=== PATIENT | female | born 1980 | race Caucasian/White ===

== ENCOUNTER 2017-04-10 13:34 | Observation (INO) | payer OTHER ==
[2017-04-10] MEDS ORDERED: SODIUM CHLORIDE 0.9% 1,000 ML IV STA ×2 (13:58)
[2017-04-10] MEDS ORDERED: LORazepam 2 MG/ML INJ IV STA (13:58)
--- NOTE | 2017-04-10 14:12 | ED ---
General Adult HPI - General Chief complaint: Shortness of Breath Stated complaint: SOB Time Seen by Provider: 04/10/17 13:45 Source: patient, RN notes reviewed Mode of arrival: ambulatory Limitations: no limitations - History of Present Illness Initial comments: The patient is a 36-year-old female significant past medical history for hypertension, Marfan syndrome, diabetes, who presents emergency room today with a chief complaint of increasing shortness of breath. She does admit that she was seen and admitted and just discharged 2 days ago from [facility] for this complaint. She states the symptoms seem to be getting worse. She states her symptoms started approximately 6 days ago. She does admit that she was having shortness of breath with chest pain. She states she was admitted to the hospital had CT performed. States that they did not find anything abnormal other than that her aorta is enlarged from previous scan. Patient states that they follow up with her today and advised her that if she was not feeling better that she should return to the emergency room. She states she does live in this area and sent to come to this hospital instead. Patient states she is no longer experiencing chest pain but still having increasing shortness of breath. She states worse with exertion. Patient does admit that she is beginning to have symptoms of some lightheadedness and dizziness over the last few days as well. Patient doesn't palpitations. She denies any other complaints currently. Patient denies any recent fever, back pain, abdominal pain, nausea or vomiting, numbness or tingling, dysuria or hematuria, constipation or diarrhea, headaches or visual changes, or any other complaints. - Related Data Home Medications Medication Instructions Recorded Confirmed ALPRAZolam [Xanax] 0.25 mg PO TID 04/10/17 04/10/17 Canagliflozin [Invokana] 100 mg PO DAILY 04/10/17 04/10/17 Cetirizine HCl [Zyrtec] 10 mg PO HS 04/10/17 04/10/17 Furosemide [Lasix] 40 mg PO DAILY 04/10/17 04/10/17 Gabapentin [Neurontin] 900 mg PO TID 04/10/17 04/10/17 Insulin Glargine [Lantus] 7 unit SQ HS 04/10/17 04/10/17 Metoprolol Tartrate [Lopressor] 50 mg PO HS 04/10/17 04/10/17 Multivitamins, Thera [Multivitamin 1 tab PO DAILY 04/10/17 04/10/17 (formulary)] Omeprazole [PriLOSEC] 80 mg PO HS 04/10/17 04/10/17 Ranitidine HCl 150 mg PO BID 04/10/17 04/10/17 Zolpidem Tartrate [Ambien] 10 mg PO HS 04/10/17 04/10/17 metFORMIN HCL 1,000 mg PO BID 04/10/17 04/10/17 oxyCODONE HCL/ACETAMINOPHEN 1 tab PO Q6HR PRN 04/10/17 04/10/17 [Percocet 10-325 mg] Allergies Allergy/AdvReac Type Severity Reaction Status Date / Time acetaminophen [From Machias] Allergy Unknown Verified 04/10/17 13:58 hydrocodone [From Machias] Allergy Unknown Verified 04/10/17 13:58 pregabalin [From Lyrica] Allergy Unknown Verified 04/10/17 13:58 topiramate [From Topamax] Allergy Unknown Verified 04/10/17 13:58 tramadol [From Ultram] Allergy Unknown Verified 04/10/17 13:58 Review of Systems ROS Statement: Those systems with pertinent positive or pertinent negative responses have been documented in the HPI. ROS Other: All systems not noted in ROS Statement are negative. Past Medical History Past Medical History: No Reported History Additional Past Medical History / Comment(s): marfans syndrome History of Any Multi-Drug Resistant Organisms: None Reported Past Surgical History: Hysterectomy Additional Past Surgical History / Comment(s): spinal cord stimulator Past Psychological History: No Psychological Hx Reported Smoking Status: Never smoker Past Alcohol Use History: None Reported Past Drug Use History: None Reported General Exam - General Exam Comments Initial Comments: General: The patient is awake and alert, in no distress, and does not appear acutely ill. Eye: Pupils are equal, round and reactive to light, extra-ocular movements are intact. No nystagmus. There is normal conjunctiva bilaterally. No signs of icterus. Ears, nose, mouth and throat: There are moist mucous membranes and no oral lesions. Neck: The neck is supple, there is no tenderness or JVD. Cardiovascular: There is a regular rate and rhythm. No murmur, rub or gallop is appreciated. Respiratory: Lungs are clear to auscultation, respirations are non-labored, breath sounds are equal. No wheezes, stridor, rales, or rhonchi. Gastrointestinal: Soft, non-distended, non-tender abdomen without masses or organomegaly noted. There is no rebound or guarding present. No CVA tenderness. Bowel sounds are unremarkable. Musculoskeletal: Normal ROM, no tenderness. Strength 5/5. Sensation intact. Pulses equal bilaterally 2+. Neurological: A&O x 3. CN II-XII intact, There are no obvious motor or sensory deficits. Coordination appears grossly intact. Speech is normal. Skin: Skin is warm and dry and no rashes or lesions are noted. Psychiatric: Cooperative, appropriate mood & affect, normal judgment. Limitations: no limitations Course Vital Signs 04/10/17 04/10/17 04/10/17 13:35 14:30 15:00 Temperature 97.5 F L Pulse Rate 122 H 90 88 Respiratory 20 18 20 Rate Blood Pressure 144/89 141/84 134/80 O2 Sat by Pulse 99 96 98 Oximetry 04/10/17 04/10/17 04/10/17 16:00 17:00 18:19 Temperature Pulse Rate 87 90 Respiratory 18 20 Rate Blood Pressure 139/76 129/80 O2 Sat by Pulse 99 99 95 Oximetry Medical Decision Making - Medical Decision Making Patient reexamined at this time shows no signs of distress. States that when she got up to the bathroom recently she still having some shortness breath with exertion. States she felt a little dizzy. Patient ultrasound shows cholelithiasis no evidence of cholecystitis. Common bile duct within normal limits. Patient does have mild elevation of her liver enzymes. Patient's labs reviewed. Patient was seen in the [facility] recently discharged just 2 days ago. She did have a CT of the chest which showed mild dilation of the aortic annulus measuring 4.4 cm 4 cm. Rest of the thoracic aortic appears normal. Normal evidence of dissection. Patient did have 2D echo which was essentially normal. Patient did have ultrasound lower extremities which were negative. No evidence for a PE. Patient's vital stable here in emergency room. Heart rates improved. Pulse ox 99% on room air at rest. With ambulation drops to 95%. Patient does admit to exertional dyspnea. Patient will be admitted with consult to cardiology. - Lab Data Result diagrams: 04/10/17 14:20 04/10/17 14:20 Lab Results 04/10/17 04/10/17 04/10/17 Range/Units 14:11 14:11 14:17 WBC (3.8-10.6) k/uL RBC (3.80-5.40) m/uL Hgb (11.4-16.0) gm/dL Hct (34.0-46.0) % MCV (80.0-100.0) fL MCH (25.0-35.0) pg MCHC (31.0-37.0) g/dL RDW (11.5-15.5) % Plt Count (150-450) k/uL Neutrophils % % Lymphocytes % % Monocytes % % Eosinophils % % Basophils % % Neutrophils # (1.3-7.7) k/uL Lymphocytes # (1.0-4.8) k/uL Monocytes # (0-1.0) k/uL Eosinophils # (0-0.7) k/uL Basophils # (0-0.2) k/uL PT (9.0-12.0) sec INR (<1.2) APTT (22.0-30.0) sec Sodium (137-145) mmol/L Potassium (3.5-5.1) mmol/L Chloride (98-107) mmol/L Carbon Dioxide (22-30) mmol/L Anion Gap mmol/L BUN (7-17) mg/dL Creatinine (0.52-1.04) mg/dL Est GFR (MDRD) Af Amer (>60 ml/min/1.73 sqM) Est GFR (MDRD) Non-Af (>60 ml/min/1.73 sqM) Glucose (74-99) mg/dL POC Glucose (mg/dL) 206 H (75-99) mg/dL POC Glu Wash Helper ID Merritt Cabrera Calcium (8.4-10.2) mg/dL Magnesium (1.6-2.3) mg/dL Total Bilirubin (0.2-1.3) mg/dL AST (14-36) U/L ALT (9-52) U/L Alkaline Phosphatase (38-126) U/L Total Creatine Kinase (30-135) U/L CK-MB (CK-2) (0.0-2.4) ng/mL CK-MB (CK-2) Rel Index Troponin I (0.000-0.034) ng/mL NT-Pro-B Natriuret Pep pg/mL Total Protein (6.3-8.2) g/dL Albumin (3.5-5.0) g/dL TSH (0.465-4.680) mIU/L Free T4 (0.78-2.19) ng/dL Urine Color Yellow Urine Appearance Clear (Clear) Urine pH 6.5 (5.0-8.0) Ur Specific [place] 1.034 (1.001-1.035) Urine Protein Negative (Negative) Urine Glucose (UA) 4+ H (Negative) Urine Ketones 1+ H (Negative) Urine Blood Negative (Negative) Urine Nitrite Negative (Negative) Urine Bilirubin Negative (Negative) Urine Urobilinogen <2.0 (<2.0) mg/dL Ur Leukocyte Esterase Negative (Negative) Urine HCG, Qual Not Detected (Not Detectd) 04/10/17 04/10/17 04/10/17 Range/Units 14:20 14:20 14:20 WBC 8.6 (3.8-10.6) k/uL RBC 4.98 (3.80-5.40) m/uL Hgb 14.7 (11.4-16.0) gm/dL Hct 45.3 (34.0-46.0) % MCV 90.9 (80.0-100.0) fL MCH 29.4 (25.0-35.0) pg MCHC 32.4 (31.0-37.0) g/dL RDW 13.9 (11.5-15.5) % Plt Count 468 H (150-450) k/uL Neutrophils % 65 % Lymphocytes % 25 % Monocytes % 6 % Eosinophils % 2 % Basophils % 1 % Neutrophils # 5.6 (1.3-7.7) k/uL Lymphocytes # 2.1 (1.0-4.8) k/uL Monocytes # 0.5 (0-1.0) k/uL Eosinophils # 0.2 (0-0.7) k/uL Basophils # 0.1 (0-0.2) k/uL PT (9.0-12.0) sec INR (<1.2) APTT (22.0-30.0) sec Sodium (137-145) mmol/L Potassium (3.5-5.1) mmol/L Chloride (98-107) mmol/L Carbon Dioxide (22-30) mmol/L Anion Gap mmol/L BUN (7-17) mg/dL Creatinine (0.52-1.04) mg/dL Est GFR (MDRD) Af Amer (>60 ml/min/1.73 sqM) Est GFR (MDRD) Non-Af (>60 ml/min/1.73 sqM) Glucose (74-99) mg/dL POC Glucose (mg/dL) (75-99) mg/dL POC Glu Wash Helper ID Calcium (8.4-10.2) mg/dL Magnesium (1.6-2.3) mg/dL Total Bilirubin (0.2-1.3) mg/dL AST (14-36) U/L ALT (9-52) U/L Alkaline Phosphatase (38-126) U/L Total Creatine Kinase 21 L (30-135) U/L CK-MB (CK-2) <0.2 (0.0-2.4) ng/mL CK-MB (CK-2) Rel Index Troponin I <0.012 (0.000-0.034) ng/mL NT-Pro-B Natriuret Pep pg/mL Total Protein (6.3-8.2) g/dL Albumin (3.5-5.0) g/dL TSH 0.426 L (0.465-4.680) mIU/L Free T4 1.56 (0.78-2.19) ng/dL Urine Color Urine Appearance (Clear) Urine pH (5.0-8.0) Ur Specific [place] (1.001-1.035) Urine Protein (Negative) Urine Glucose (UA) (Negative) Urine Ketones (Negative) Urine Blood (Negative) Urine Nitrite (Negative) Urine Bilirubin (Negative) Urine Urobilinogen (<2.0) mg/dL Ur Leukocyte Esterase (Negative) Urine HCG, Qual (Not Detectd) 04/10/17 04/10/17 04/10/17 Range/Units 14:20 14:20 14:20 WBC (3.8-10.6) k/uL RBC (3.80-5.40) m/uL Hgb (11.4-16.0) gm/dL Hct (34.0-46.0) % MCV (80.0-100.0) fL MCH (25.0-35.0) pg MCHC (31.0-37.0) g/dL RDW (11.5-15.5) % Plt Count (150-450) k/uL Neutrophils % % Lymphocytes % % Monocytes % % Eosinophils % % Basophils % % Neutrophils # (1.3-7.7) k/uL Lymphocytes # (1.0-4.8) k/uL Monocytes # (0-1.0) k/uL Eosinophils # (0-0.7) k/uL Basophils # (0-0.2) k/uL PT 9.5 (9.0-12.0) sec INR 0.9 (<1.2) APTT 22.2 (22.0-30.0) sec Sodium 140 (137-145) mmol/L Potassium 4.4 (3.5-5.1) mmol/L Chloride 105 (98-107) mmol/L Carbon Dioxide 20 L (22-30) mmol/L Anion Gap 15 mmol/L BUN 14 (7-17) mg/dL Creatinine 0.72 (0.52-1.04) mg/dL Est GFR (MDRD) Af Amer >60 (>60 ml/min/1.73 sqM) Est GFR (MDRD) Non-Af >60 (>60 ml/min/1.73 sqM) Glucose 231 H (74-99) mg/dL POC Glucose (mg/dL) (75-99) mg/dL POC Glu Wash Helper ID Calcium 10.0 (8.4-10.2) mg/dL Magnesium 1.8 (1.6-2.3) mg/dL Total Bilirubin 0.4 (0.2-1.3) mg/dL AST 49 H (14-36) U/L ALT 86 H (9-52) U/L Alkaline Phosphatase 142 H (38-126) U/L Total Creatine Kinase (30-135) U/L CK-MB (CK-2) (0.0-2.4) ng/mL CK-MB (CK-2) Rel Index Troponin I (0.000-0.034) ng/mL NT-Pro-B Natriuret Pep 73 pg/mL Total Protein 7.8 (6.3-8.2) g/dL Albumin 4.4 (3.5-5.0) g/dL TSH (0.465-4.680) mIU/L Free T4 (0.78-2.19) ng/dL Urine Color Urine Appearance (Clear) Urine pH (5.0-8.0) Ur Specific [place] (1.001-1.035) Urine Protein (Negative) Urine Glucose (UA) (Negative) Urine Ketones (Negative) Urine Blood (Negative) Urine Nitrite (Negative) Urine Bilirubin (Negative) Urine Urobilinogen (<2.0) mg/dL Ur Leukocyte Esterase (Negative) Urine HCG, Qual (Not Detectd) Disposition Clinical Impression: Exertional dyspnea Disposition: ADMITTED IP TO THIS [facility] Condition: Stable Referrals: Nonstaff,Physician [Primary Care Provider] - 1-2 days Time of Disposition: 18:06
[2017-04-10 14:20] LABS: Appearance,Urine Clear (Clear); Bilirubin,Urine Negative (Negative); Glucose,Urine (UA) 4+ (Negative); Ketones,Urine 1+ (Negative); Leukocyte Esterase,Urine Negative (Negative); Nitrite,Urine Negative (Negative); PH, Urine 6.5 (5.0-8.0); Protein,Urine Negative (Negative); Specific Gravity,Urine 1.034 (1.001-1.035); UA Billing (MACRO vs. MICRO) CHEM; Urobilinogen,Urine <2.0 mg/dL (<2.0)
[2017-04-10 14:34] LABS: Basophils # (A) 0.1 k/uL (0-0.2); Basophils % (A) 1 %; CH 30.1; CHCM 33.3; Eosinophils # (A) 0.2 k/uL (0-0.7); Eosinophils % (A) 2 %; HCT 45.3 % (34.0-46.0); HDW 2.65; HGB 14.7 gm/dL (11.4-16.0); Luc # (Auto) 0.18; Luc % (Auto) 2; Lymphocytes # (A) 2.1 k/uL (1.0-4.8); Lymphocytes % (A) 25 %; MCH 29.4 pg (25.0-35.0); MCHC 32.4 g/dL (31.0-37.0); MCV 90.9 fL (80.0-100.0); Mean Platelet Volume 6.5; Monocytes # (A) 0.5 k/uL (0-1.0); Monocytes % (A) 6 %; Neutrophils # (A) 5.6 k/uL (1.3-7.7); Neutrophils % (A) 65 %; RBC 4.98 m/uL (3.80-5.40); RDW 13.9 % (11.5-15.5); WBC 8.6 k/uL (3.8-10.6); WBC (Perox) 7.99
[2017-04-10 14:35] LABS: Glucose,Whole Blood 206 mg/dL (75-99)
[2017-04-10 14:40] LABS: ALT 86 U/L (9-52); AST 49 U/L (14-36); Alkaline Phosphatase 142 U/L (38-126); Anion Gap 15 mmol/L; Blood Urea Nitrogen 14 mg/dL (7-17); Carbon Dioxide 20 mmol/L (22-30); Chloride 105 mmol/L (98-107); Glucose 231 mg/dL (74-99); Magnesium 1.8 mg/dL (1.6-2.3); Non-African American GFR(MDRD) >60 (>60 ml/min/1.73 sqM); Potassium 4.4 mmol/L (3.5-5.1); Sodium 140 mmol/L (137-145); Total Bilirubin 0.4 mg/dL (0.2-1.3); Total Protein 7.8 g/dL (6.3-8.2)
[2017-04-10 14:41] LABS: INR 0.9 (<1.2); Partial Thromboplastin Time 22.2 sec (22.0-30.0); Prothrombin Time 9.5 sec (9.0-12.0)
[2017-04-10 14:56] LABS: Creatine Kinase 21 U/L (30-135)
[2017-04-10 15:09] LABS: Creatine Kinase MB <0.2 ng/mL (0.0-2.4); Troponin I <0.012 ng/mL (0.000-0.034)
--- NOTE | 2017-04-10 16:20 | XR ---
EXAMINATION TYPE: XR chest 2V DATE OF EXAM: 04/10/2017 COMPARISON: None HISTORY: 36-year-old female with shortness of breath TECHNIQUE: PA and lateral views FINDINGS: The cardiomediastinal silhouette, aorta, and pulmonary vasculature are within normal limits. Mild int erstitial prominence. No reyna consolidation or pleural effusion. There is a spinal stimulator array centered along the mid thoracic spinal canal. IMPRESSION: Mild interstitial prominence could represent bronchitis, chronic asthma, or atypical pneumonias. No f ocal infiltrate.
--- NOTE | 2017-04-10 17:33 | US ---
EXAMINATION TYPE: US abdomen limited DATE OF EXAM: 04/10/2017 COMPARISON: NONE CLINICAL HISTORY: 36-year-old female Pain. Patient states being NPO. SOB, fatigue TECHNIQUE: Multiple sonographic images of the right upper quadrant are obtained. FINDINGS: GRAIN ELEVATOR WORKER NOTES: Suboptimal exam due to overlying bowel gas and patient body habitus Liver Length: Approximately 18.5 cm. CBD: 4.8 mm Right Kidney: 10.9 cm Pancreas: Suboptimal visualization of the body and tail secondary to shadowing from bowel gas. Liver: Mildly enlarged, not well visualized. Visualized portions appears somewhat echogenic. Gallbladder: Obscured by overlying bowel gas. Event Security Officer notes: Scanned both supine and LLD in are a of gallbladder. Gallbladder possibly seen transverse in LLD with multiple echogenic foci with shad owing. No obvious gallbladder wall thickening. Evidence for sonographic Cabrera's sign: neg CHD: wnl Right Kidney: Dromedary hump seen. No hydronephrosis. IMPRESSION: 1. Suboptimal exam due to excessive bowel gas. 2. Mild hepatomegaly. Visualized portions of the liver appear echogenic. Correlate for possible hepat ic steatosis. 3. Limited visualization of the gallbladder. Underlying cholelithiasis is suspected. 4. Bile duct is normal caliber.
[2017-04-10] MEDS ORDERED: IBUPROFEN 600 MG TAB PO STA (19:10)
[2017-04-10 20:51] VITALS: BMI 33.7
[2017-04-10 20:51] LABS: Creatine Kinase <20 U/L (30-135)
[2017-04-10 20:55] LABS: Glucose,Whole Blood 134 mg/dL (75-99)
[2017-04-10] MEDS ORDERED: oxyCODONE-APAP 10-325MG 1 EACH TAB PO PRN (20:59)
[2017-04-10] MEDS ORDERED: metFORMIN 500 MG TAB PO SCH (21:00)
[2017-04-10] MEDS ORDERED: METOPROLOL TARTRATE 50 MG TAB PO SCH (21:00)
[2017-04-10] MEDS ORDERED: ZOLPIDEM 10 MG TAB PO SCH (21:00)
[2017-04-10] MEDS ORDERED: INSULIN GLARGINE 100 UNIT/ML 10 ML VIAL SQ SCH (21:00)
[2017-04-10] MEDS ORDERED: RX INFO: IV CONTRAST WAS GIVEN 1 EACH MISC MISCELLANE PRN (21:02)
[2017-04-10 21:04] LABS: Creatine Kinase MB <0.2 ng/mL (0.0-2.4); Troponin I <0.012 ng/mL (0.000-0.034)
[2017-04-10] MEDS ORDERED: LORATADINE 10 MG TAB PO SCH (21:15)
--- NOTE | 2017-04-10 22:03 | CT ---
EXAMINATION TYPE: CT angio chest DATE OF EXAM: 04/10/2017 9:47 PM COMPARISON: NONE HISTORY: Dyspnea. CT DLP: 476.20 mGycm Automated exposure control for dose reduction was used. CONTRAST: CTA scan of the thorax is performed with IV Contrast, patient injected with 71 mL of Omnipaque 350, p ulmonary embolism protocol. There are 3-D post processed images.. FINDINGS: The lungs are clear of infiltrate. There is no evidence of pleural effusion. There is no pulmonary ma ss. Heart size is fairly normal. There is no pericardial effusion. Thoracic aorta appears normal. The re is no sign of aneurysm or dissection. There is normal contrast opacification of the pulmonary arteries. I see no filling defects. There are no hilar masses. There is no mediastinal adenopathy. There is upper thoracic levoscoliosis. IMPRESSION: NO EVIDENCE OF PULMONARY EMBOLISM. MILD THORACIC SCOLIOTIC DEFORMITY.
[2017-04-10] MEDS: FAMOTIDINE 20 MG TAB PO SCH ×2 (22:40→22:41)
[2017-04-10] MEDS: GABAPENTIN 300 MG CAP PO SCH (22:40)
[2017-04-10] MEDS: ALPRAZolam 0.25 MG TAB PO SCH (22:41)
[2017-04-10] MEDS: PANTOPRAZOLE 40 MG TABLET PO SCH (22:43)
[2017-04-11 02:51] LABS: Creatine Kinase 21 U/L (30-135)
[2017-04-11 02:53] LABS: Cholesterol 221 mg/dL (<200); HDL Cholesterol 27 mg/dL (40-60)
[2017-04-11 03:05] LABS: Creatine Kinase MB <0.2 ng/mL (0.0-2.4); Troponin I <0.012 ng/mL (0.000-0.034)
[2017-04-11 07:13] LABS: Glucose,Whole Blood 144 mg/dL (75-99)
[2017-04-11] MEDS: PANTOPRAZOLE 40 MG TABLET PO SCH (11:02)
[2017-04-11] MEDS: GABAPENTIN 300 MG CAP PO SCH (11:02)
[2017-04-11] MEDS: ALPRAZolam 0.25 MG TAB PO SCH (11:04)
[2017-04-11 11:37] VITALS: BP 118/63; PULSE 73; RESP 18; TEMP 97.5
[2017-04-11 11:52] LABS: Glucose,Whole Blood 178 mg/dL (75-99)
--- NOTE | 2017-04-11 13:07 | P.CRDCN ---
History of Present Illness Consult date: 04/11/17 History of present illness: This 36-year-old female past medical history significant for Marfan syndrome, hypertension, hyperlipidemia and diabetes. She presents to the hospital with persistent fatigue and shortness of breath over the previous weekend. She states approximately 10 days ago she was up and about asleep with an extreme excruciating chest pain. She states the pain was across the top of her chest and radiated around to her back. The pain ultimately went away on its own but was intermittent in nature over the following days. She went to [facility] in [place] for evaluation and was inpatient from Sunday to Sunday. She says she underwent CAT scan of the chest as well as echocardiogram. She was told her aorta wasn't enlarged greater than previous studies. We will obtain those records. This time my examination she is sitting in bed in no acute distress. Her chest pain has resolved. But she does feel mildly short of breath with exertion and extremely fatigued. She is to follow with the fruit and vegetable inspector out of [facility]'s heart [place] but has not seen her since last year. She states she is compliant with her medications. Denies history of CAD. Has never undergone stress testing or cardiac catheterization in the past. EKG reveals sinus mechanism with non-specific T-wave abnormalities. Cardiac enzymes negative x3. Potassium 4.4, magnesium 1.8. Abnormal liver enzymes and blood sugars consistently elevated. Chest xray with cardiac silhouette, aorta and pulmonary vasculature within normal limits and no acute cardiopulmonary process present. CTA negative for PE with normal appearing thoracic aorta. Blood pressure 100/59 with heart rate is 67. Current cardiac medications include Lasix 40 mg daily and Lopressor 50 mg at night. Review of Systems CONSTITUTIONAL: Denies fever. Denies chills. EYES: Denies blurred vision. Denies vision changes. Denies eye pain. EARS, NOSE, MOUTH & THROAT: Denies headache. Denies sore throat. Denies ear pain. CARDIOVASCULAR: Complains of one episode of chest pain, resolved. Denies shortness of breath. Denies orthopnea. Denies PND. Denies palpitations. RESPIRATORY: Denies cough. GASTROINTESTINAL: Complains of right upper quadrant and flank abdominal pain. Denies diarrhea. Denies constipation. Denies nausea. Denies vomitng. MUSCULOSKELETAL: Denies myalgias. INTEGUMENTARY: Denies pruitis. Denies rash. NEUROLOGIC: Denies numbness. Denies tingling. Denies weakness. PSYCHIATRIC: Denies anxiety. Denies depression. ENDOCRINE: Complains of fatigue. Denies weight change. Denies polydipsia. Denies polyurina. GENITOURINARY: Denies burning, hematuria or urgency with micturation. HEMATOLOGIC: Denies history of anemia. Denies bleeding. Past Medical History Past Medical History: No Reported History, Diabetes Mellitus, Hyperlipidemia, Hypertension Additional Past Medical History / Comment(s): marfans syndrome, po and insulin for DM, borderline high cholestrol no meds just diet, IBS no tx at this time, right foot neuropathy History of Any Multi-Drug Resistant Organisms: None Reported Past Surgical History: Hysterectomy Additional Past Surgical History / Comment(s): spinal cord stimulator in upper back - can not have MRI's , partial hyst Past Anesthesia/Blood Transfusion Reactions: No Reported Reaction Past Psychological History: No Psychological Hx Reported Additional Psychological History / Comment(s): takes Xanax for help sleeping with ambien Smoking Status: Never smoker Past Alcohol Use History: None Reported Past Drug Use History: None Reported - Past Family History Father Additional Family Medical History / Comment(s): Marfans passed at age 34 Mother Additional Family Medical History / Comment(s): suicide 2 yrs ago - bipolar Medications and Allergies Home Medications Medication Instructions Recorded Confirmed Type ALPRAZolam [Xanax] 0.25 mg PO TID 04/10/17 04/10/17 History Canagliflozin [Invokana] 100 mg PO DAILY 04/10/17 04/10/17 History Cetirizine HCl [Zyrtec] 10 mg PO HS 04/10/17 04/10/17 History Furosemide [Lasix] 40 mg PO DAILY 04/10/17 04/10/17 History Gabapentin [Neurontin] 900 mg PO TID 04/10/17 04/10/17 History Insulin Glargine [Lantus] 7 unit SQ HS 04/10/17 04/10/17 History Metoprolol Tartrate [Lopressor] 50 mg PO HS 04/10/17 04/10/17 History Multivitamins, Thera [Multivitamin 1 tab PO DAILY 04/10/17 04/10/17 History (formulary)] Omeprazole [PriLOSEC] 80 mg PO HS 04/10/17 04/10/17 History Ranitidine HCl 150 mg PO BID 04/10/17 04/10/17 History Zolpidem Tartrate [Ambien] 10 mg PO HS 04/10/17 04/10/17 History metFORMIN HCL 1,000 mg PO BID 04/10/17 04/10/17 History oxyCODONE HCL/ACETAMINOPHEN 1 tab PO Q6HR PRN 04/10/17 04/10/17 History [Percocet 10-325 mg] Allergies Allergy/AdvReac Type Severity Reaction Status Date / Time acetaminophen [From [place]] Allergy Unknown Verified 04/10/17 13:58 hydrocodone [From [place]] Allergy Unknown Verified 04/10/17 13:58 pregabalin [From Lyrica] Allergy Unknown Verified 04/10/17 13:58 topiramate [From Topamax] Allergy Unknown Verified 04/10/17 13:58 tramadol [From Ultram] Allergy Unknown Verified 04/10/17 13:58 Physical Exam Vitals: Vital Signs Temp Pulse Pulse Resp BP BP Pulse Ox 04/11/17 04:00 63 16 04/11/17 03:52 97.4 F L 61 16 122/59 97 04/10/17 23:51 97.7 F 65 16 131/73 96 04/10/17 23:19 66 16 04/10/17 20:00 97.9 F 70 16 135/77 97 04/10/17 19:54 81 18 119/63 95 04/10/17 18:19 95 04/10/17 18:00 87 20 128/74 97 04/10/17 17:00 90 20 129/80 99 04/10/17 16:00 87 18 139/76 99 04/10/17 15:00 88 20 134/80 98 04/10/17 14:30 90 18 141/84 96 04/10/17 13:35 97.5 F L 122 H 20 144/89 99 Intake and Output 04/10/17 04/11/17 04/11/17 22:59 06:59 14:59 Intake Total 1000 Balance 1000 Intake: Amount of Fluid Infused ( 1000 ml) Other: Voiding Method Toilet Toilet # Voids 2 Weight 100.698 kg GENERAL: This is a 36-year-old female in no apparent distress at the time of my examination. Obese. HEENT: Head is atraumatic, normocephalic. Pupils are equal, round. Sclerae anicteric. Conjunctivae are clear. Mucous membranes of the mouth are moist. Neck is supple. There is no jugular venous distention. No carotid bruit is heard. LUNGS: Clear to auscultation no wheezes, rales or rhonchi. No chest wall tenderness is noted on palpation or with deep breathing. HEART: Regular rate and rhythm without murmurs, rubs or gallops. S1 and S2 heard. ABDOMEN: Soft, nontender. Bowel sounds are heard. No organomegaly noted. EXTREMITIES: 2+ peripheral pulses with no evidence of peripheral edema and no calf tenderness noted. NEUROLOGIC: Patient is awake, alert and oriented x3. Results 04/10/17 14:20 04/10/17 14:20 Cardiac Enzymes 04/10/17 04/10/17 04/10/17 Range/Units 14:20 14:20 20:19 AST 49 H (14-36) U/L CK-MB (CK-2) <0.2 <0.2 (0.0-2.4) ng/mL Troponin I <0.012 <0.012 (0.000-0.034) ng/mL 04/11/17 Range/Units 02:20 AST (14-36) U/L CK-MB (CK-2) <0.2 (0.0-2.4) ng/mL Troponin I <0.012 (0.000-0.034) ng/mL Coagulation 04/10/17 Range/Units 14:20 PT 9.5 (9.0-12.0) sec APTT 22.2 (22.0-30.0) sec Lipids 04/11/17 Range/Units 02:24 Triglycerides 333 H (<150) mg/dL Cholesterol 221 H (<200) mg/dL HDL Cholesterol 27 L (40-60) mg/dL CBC 04/10/17 Range/Units 14:20 WBC 8.6 (3.8-10.6) k/uL RBC 4.98 (3.80-5.40) m/uL Hgb 14.7 (11.4-16.0) gm/dL Hct 45.3 (34.0-46.0) % Plt Count 468 H (150-450) k/uL Comprehensive Metabolic Panel 04/10/17 Range/Units 14:20 Sodium 140 (137-145) mmol/L Potassium 4.4 (3.5-5.1) mmol/L Chloride 105 (98-107) mmol/L Carbon Dioxide 20 L (22-30) mmol/L BUN 14 (7-17) mg/dL Creatinine 0.72 (0.52-1.04) mg/dL Glucose 231 H (74-99) mg/dL Calcium 10.0 (8.4-10.2) mg/dL AST 49 H (14-36) U/L ALT 86 H (9-52) U/L Alkaline Phosphatase 142 H (38-126) U/L Total Protein 7.8 (6.3-8.2) g/dL Albumin 4.4 (3.5-5.0) g/dL Current Medications Generic Name Dose Route Start Last Admin Trade Name Freq PRN Reason Stop Dose Admin Alprazolam 0.25 mg 04/10/17 22:00 04/10/17 22:41 Xanax PO 0.25 mg TID BRENT Administration Famotidine 20 mg 04/10/17 21:00 04/10/17 22:41 Pepcid PO 20 mg BID BRENT Administration Gabapentin 900 mg 04/10/17 22:00 04/10/17 22:40 Neurontin PO 900 mg TID BRENT Administration Insulin Glargine 7 unit 04/10/17 21:00 04/10/17 22:41 Lantus SQ 7 unit HS BRENT Administration Loratadine 10 mg 04/10/17 21:15 04/10/17 22:41 Claritin PO 10 mg HS BRENT Administration Metformin HCl 1,000 mg 04/10/17 21:00 04/10/17 22:45 Glucophage PO Not Given BID BRENT Metoprolol Tartrate 50 mg 04/10/17 21:00 04/10/17 22:40 Lopressor PO 50 mg HS BRENT Administration Miscellaneous Information 1 each 04/10/17 21:02 Rx Info: Iv Contrast Was Given MISCELLANE 04/12/17 21:03 DAILY PRN Per Protocol Oxycodone/Acetaminophen 1 each 04/10/17 20:59 Percocet 10-325 PO Q6HR PRN Pain Pantoprazole Sodium 40 mg 04/10/17 21:15 04/10/17 22:43 Protonix PO 40 mg BID@0730,2100 BRENT Administration Zolpidem Tartrate 10 mg 04/10/17 21:00 04/10/17 22:41 Ambien PO 10 mg HS BRENT Administration Intake and Output 04/10/17 04/11/17 04/11/17 22:59 06:59 14:59 Intake Total 1000 Balance 1000 Intake: Amount of Fluid Infused ( 1000 ml) Other: Voiding Method Toilet Toilet # Voids 2 Weight 100.698 kg 04/10/17 14:20 04/10/17 14:20 Assessment and Plan Assessment: ASSESSMENT 1. Exertional shortness of breath and fatigue 2. History of Marfan syndrome 3. Essential hypertension 4. Diabetes mellitus 5. Hyperlipidemia 6. Elevated liver enzymes PLAN The records from recent hospital admission at [facility] have been reviewed. CT of the chest was performed as well as echocardiogram and consultation with cardiothoracic surgery. Her aortic root is 4.3 cm and stable. She shows no signs of aortic insufficiency to explain this for the etiology of her shortness of breath. This has been verbalized to the patient and we recommend she follows up with her regularly scheduled appointment with Dr. Ruiz on April 23. Consider evaluation of abnormal liver enzymes from primary medical team. Lifestyle modifications discussed as a means to lower her cholesterol this time. Nurse Practitioner note has been reviewed, I agree with a documented findings and plan of care. Patient was seen and examined.
--- NOTE | 2017-04-11 16:29 | P.HPIM ---
History of Present Illness This 36-year-old female past medical history significant for Marfan syndrome, hypertension, hyperlipidemia and diabetes, came in with complains of shortness of breath patient was extensively evaluated and recently discharged from [facility], [facility] medical records were reviewed patient does have history of Marfan's for which patient has referral to valve clinic around [place] area. Patient is saturating well came in with compensative shortness of breath no etiology was appreciated patient had a CAT scan of the chest which did not show any significant abnormality although workup to appear to be negative. Patient doesn't have any PE had mildly elevated d-dimer. There was a concern of biliary sludge but patient doesn't have any right upper quadrant abdominal pain patient was comparing of some nonspecific pain in the left lower quadrant. Patient denied any fever, chills. Patient carries diagnosis of chronic pain syndrome. Patient recently moved to the [place] because of her 's work as per the patient. Patient underwent the CAT scan of the chest here and echocardiogram Review of Systems REVIEW OF SYSTEMS: CONSTITUTIONAL: No fever, no malaise, no fatigue. HEENT: No recent visual problems or hearing problems. Denied any sore throat. CARDIOVASCULAR: No chest pain, orthopnea, PND, no palpitations, no syncope. PULMONARY: No shortness of breath, no cough, no hemoptysis. GASTROINTESTINAL: No diarrhea, no nausea, no vomiting, no abdominal pain. Normoactive bowel sounds. NEUROLOGICAL: No headaches, no weakness, no numbness. HEMATOLOGICAL: Denies any bleeding or petechiae. GENITOURINARY: Denies any burning micturition, frequency, or urgency. MUSCULOSKELETAL/RHEUMATOLOGICAL: Denies any joint pain, swelling, or any muscle pain. ENDOCRINE: Denies any polyuria or polydipsia. The rest of the 14-point review of systems is negative. Past Medical History Past Medical History: No Reported History, Diabetes Mellitus, Hyperlipidemia, Hypertension Additional Past Medical History / Comment(s): marfans syndrome, po and insulin for DM, borderline high cholestrol no meds just diet, IBS no tx at this time, right foot neuropathy History of Any Multi-Drug Resistant Organisms: None Reported Past Surgical History: Hysterectomy Additional Past Surgical History / Comment(s): spinal cord stimulator in upper back - can not have MRI's , partial hyst Past Anesthesia/Blood Transfusion Reactions: No Reported Reaction Past Psychological History: No Psychological Hx Reported Additional Psychological History / Comment(s): takes Xanax for help sleeping with ambien Smoking Status: Never smoker Past Alcohol Use History: None Reported Past Drug Use History: None Reported - Past Family History Father Additional Family Medical History / Comment(s): Aj passed at age 34 Mother Additional Family Medical History / Comment(s): suicide 2 yrs ago - bipolar Medications and Allergies Home Medications Medication Instructions Recorded Confirmed Type ALPRAZolam [Xanax] 0.25 mg PO TID 04/10/17 04/10/17 History Canagliflozin [Invokana] 100 mg PO DAILY 04/10/17 04/10/17 History Cetirizine HCl [Zyrtec] 10 mg PO HS 04/10/17 04/10/17 History Furosemide [Lasix] 40 mg PO DAILY 04/10/17 04/10/17 History Gabapentin [Neurontin] 900 mg PO TID 04/10/17 04/10/17 History Insulin Glargine [Lantus] 7 unit SQ HS 04/10/17 04/10/17 History Metoprolol Tartrate [Lopressor] 50 mg PO HS 04/10/17 04/10/17 History Multivitamins, Thera [Multivitamin 1 tab PO DAILY 04/10/17 04/10/17 History (formulary)] Omeprazole [PriLOSEC] 80 mg PO HS 04/10/17 04/10/17 History Ranitidine HCl 150 mg PO BID 04/10/17 04/10/17 History Zolpidem Tartrate [Ambien] 10 mg PO HS 04/10/17 04/10/17 History metFORMIN HCL 1,000 mg PO BID 04/10/17 04/10/17 History oxyCODONE HCL/ACETAMINOPHEN 1 tab PO Q6HR PRN 04/10/17 04/10/17 History [Percocet 10-325 mg] Allergies Allergy/AdvReac Type Severity Reaction Status Date / Time acetaminophen [From [place]] Allergy Unknown Verified 04/10/17 13:58 hydrocodone [From [place]] Allergy Unknown Verified 04/10/17 13:58 pregabalin [From [place]] Allergy Unknown Verified 04/10/17 13:58 topiramate [From Topamax] Allergy Unknown Verified 04/10/17 13:58 tramadol [From Ultram] Allergy Unknown Verified 04/10/17 13:58 Physical Exam Vitals: Vital Signs Temp Pulse Pulse Resp BP BP Pulse Ox 04/11/17 12:00 73 18 04/11/17 11:36 97.5 F L 73 18 118/63 95 04/11/17 08:00 97.6 F 67 16 100/59 96 04/11/17 04:00 63 16 04/11/17 03:52 97.4 F L 61 16 122/59 97 04/10/17 23:51 97.7 F 65 16 131/73 96 04/10/17 23:19 66 16 04/10/17 20:00 97.9 F 70 16 135/77 97 04/10/17 19:54 81 18 119/63 95 04/10/17 18:19 95 04/10/17 18:00 87 20 128/74 97 04/10/17 17:00 90 20 129/80 99 Intake and Output 04/11/17 04/11/17 04/11/17 06:59 14:59 22:59 Intake Total 360 Balance 360 Intake: Oral 360 Other: Voiding Method Toilet Toilet # Voids 2 2 PHYSICAL EXAMINATION: GENERAL: The patient is alert and oriented x3, not in any acute distress. Well developed, well nourished. HEENT: Pupils are round and equally reacting to light. EOMI. No scleral icterus. No conjunctival pallor. Normocephalic, atraumatic. No pharyngeal erythema. No thyromegaly. CARDIOVASCULAR: S1 and S2 present. No murmurs, rubs, or gallops. PULMONARY: Chest is clear to auscultation, no wheezing or crackles. ABDOMEN: Soft, nontender, nondistended, normoactive bowel sounds. No palpable organomegaly. MUSCULOSKELETAL: No joint swelling or deformity. EXTREMITIES: No cyanosis, clubbing, or pedal edema. NEUROLOGICAL: Gross neurological examination did not reveal any focal deficits. SKIN: No rashes. Results CBC & Chem 7: 04/10/17 14:20 04/10/17 14:20 Labs: Abnormal Lab Results - Last 24 Hours (Table) 04/10/17 04/10/17 04/10/17 Range/Units 20:19 20:19 20:47 D-Dimer 1.07 H (<0.60) mg/L FEU POC Glucose (mg/dL) 134 H (75-99) mg/dL Total Creatine Kinase <20 L (30-135) U/L Triglycerides (<150) mg/dL Cholesterol (<200) mg/dL LDL Cholesterol, Calc (0-99) mg/dL HDL Cholesterol (40-60) mg/dL 04/11/17 04/11/17 04/11/17 Range/Units 02:20 02:24 07:10 D-Dimer (<0.60) mg/L FEU POC Glucose (mg/dL) 144 H (75-99) mg/dL Total Creatine Kinase 21 L (30-135) U/L Triglycerides 333 H (<150) mg/dL Cholesterol 221 H (<200) mg/dL LDL Cholesterol, Calc 127 H (0-99) mg/dL HDL Cholesterol 27 L (40-60) mg/dL 04/11/17 Range/Units 11:48 D-Dimer (<0.60) mg/L FEU POC Glucose (mg/dL) 178 H (75-99) mg/dL Total Creatine Kinase (30-135) U/L Triglycerides (<150) mg/dL Cholesterol (<200) mg/dL LDL Cholesterol, Calc (0-99) mg/dL HDL Cholesterol (40-60) mg/dL Thrombosis Risk Factor Assmnt - Choose All That Apply Each Factor Represents 1 point: Obesity (BMI >25) Thrombosis Risk Factor Assessment Total Risk Factor Score: 1 Thrombosis Risk Factor Assessment Level: Low Risk Assessment and Plan Plan: #1 shortness of breath: Etiology is unknown, I believe patient has either psychosomatic disorder or maybe malingering. #2 hyperlipidemia at counseling was provided. #3 sick euthyroid syndrome TSH need to be retested. #4 possibility of gallstones, although patient does not have any symptoms of cholelithiasis patient is to follow with primary care physician as outpatient. #5 history of Marfan's recently discharged from [facility] with a referral to Valve clinic #6 hypertension
--- NOTE | 2017-04-11 16:30 | P.DS ---
Providers Date of admission: 04/10/17 18:22 Attending physician: Jay Hancock Consults: 04/10/17 18:22 Consult Physician Stat Consulting Provider: [facility] Consult Reason/Comments: Exertional dyspnea Do you want consulting provider notified?: Yes Primary care physician: Physician Nonstaff Hospital Course: Please refer to HPI for further details. Patient Condition at Discharge: Stable Plan - Discharge Summary New Discharge Prescriptions: No Action Ranitidine HCl 150 mg PO BID Multivitamins, Thera [Multivitamin (formulary)] 1 tab PO DAILY Furosemide [Lasix] 40 mg PO DAILY ALPRAZolam [Xanax] 0.25 mg PO TID oxyCODONE HCL/ACETAMINOPHEN [Percocet 10-325 mg] 1 tab PO Q6HR PRN PRN Reason: Pain Cetirizine HCl [Zyrtec] 10 mg PO HS Zolpidem Tartrate [Ambien] 10 mg PO HS Omeprazole [PriLOSEC] 80 mg PO HS metFORMIN HCL 1,000 mg PO BID Metoprolol Tartrate [Lopressor] 50 mg PO HS Insulin Glargine [Lantus] 7 unit SQ HS Gabapentin [Neurontin] 900 mg PO TID Canagliflozin [Invokana] 100 mg PO DAILY Discharge Medication List ALPRAZolam [Xanax] 0.25 mg PO TID 04/10/17 [History] Canagliflozin [Invokana] 100 mg PO DAILY 04/10/17 [History] Cetirizine HCl [Zyrtec] 10 mg PO HS 04/10/17 [History] Furosemide [Lasix] 40 mg PO DAILY 04/10/17 [History] Gabapentin [Neurontin] 900 mg PO TID 04/10/17 [History] Insulin Glargine [Lantus] 7 unit SQ HS 04/10/17 [History] Metoprolol Tartrate [Lopressor] 50 mg PO HS 04/10/17 [History] Multivitamins, Thera [Multivitamin (formulary)] 1 tab PO DAILY 04/10/17 [History ] Omeprazole [PriLOSEC] 80 mg PO HS 04/10/17 [History] Ranitidine HCl 150 mg PO BID 04/10/17 [History] Zolpidem Tartrate [Ambien] 10 mg PO HS 04/10/17 [History] metFORMIN HCL 1,000 mg PO BID 04/10/17 [History] oxyCODONE HCL/ACETAMINOPHEN [Percocet 10-325 mg] 1 tab PO Q6HR PRN 04/10/17 [ History] Follow up Appointment(s)/Referral(s): Nonstaff,Physician [Primary Care Provider] - 1-2 days Karolina Ruiz MD [STAFF PHYSICIAN] - 04/23/17 (keep cardiology appt. ) Discharge Disposition: HOME SELF-CARE
== END 2017-04-11 14:08 | disposition home or self-care (01) ==
LOC: EC 13:34 → 3OBS 18:22
PROVIDERS: ADMIT Internal Medicine; ATTEND Internal Medicine
DX: R06.02 Shortness of breath (principal); Q87.40 Marfan syndrome, unspecified; R79.89 Other specified abnormal findings of blood chemistry; I10 Essential (primary) hypertension; E11.40 Type 2 diabetes mellitus with diabetic neuropathy, unspecified; G89.4 Chronic pain syndrome; Z79.4 Long term (current) use of insulin; Z79.84 Long term (current) use of oral hypoglycemic drugs; Z88.5 Allergy status to narcotic agent; Z88.6 Allergy status to analgesic agent; Z88.8 Allergy status to other drugs, medicaments and biological substances
CPT/HCPCS: 99285 ×2; 96374 ×2; 96361 ×2; 36415; 93005; 85379; 84439; 83880; 80061; 80053; 84443; 82550 ×2; 82553 ×2; 83735; 84484 ×2; 85025; 85610; 85730; 81003; 81025; 71020; 76705; 71275; G0378 ×2; J2060; Q9967

== ENCOUNTER 2017-04-18 16:42 | Emergency (ER) | payer OTHER ==
[2017-04-18] MEDS ORDERED: SODIUM CHLORIDE 0.9% 1,000 ML IV STA (18:45)
--- NOTE | 2017-04-18 18:49 | ED ---
General Adult HPI - General Chief complaint: Weakness Stated complaint: fatigue Time Seen by Provider: 04/18/17 18:32 Source: patient, RN notes reviewed, old records reviewed Mode of arrival: ambulatory Limitations: no limitations - History of Present Illness Initial comments: patient is a pleasant 36-year-old female presenting to the emergency department complaining of fatigue. Symptoms have been present for a couple of weeks. Patient was in the hospital last week. Patient had exertional dyspnea however that is not a main concern at this point. No chest pain. Patient has had some mild abdominal discomfort however not really abdominal pain. Patient has had loss of appetite and gets some nausea with oral intake. Patient states she frequently gets diarrhea following oral intake. Patient states last time she was in the hospital she was told her liver enzymes were somewhat elevated. Patient did follow-up with her doctor last week and blood work was repeated however she does not know the results. Patient believes she may have had some low-grade fevers over the past several days up to 100. - Related Data Home Medications Medication Instructions Recorded Confirmed ALPRAZolam [Xanax] 0.25 mg PO TID 04/10/17 04/18/17 Canagliflozin [Invokana] 100 mg PO DAILY 04/10/17 04/18/17 Cetirizine HCl [Zyrtec] 10 mg PO HS 04/10/17 04/18/17 Furosemide [Lasix] 40 mg PO DAILY 04/10/17 04/18/17 Gabapentin [Neurontin] 900 mg PO TID 04/10/17 04/18/17 Insulin Glargine [Lantus] 7 unit SQ HS 04/10/17 04/18/17 Metoprolol Tartrate [Lopressor] 50 mg PO HS 04/10/17 04/18/17 Multivitamins, Thera [Multivitamin 1 tab PO DAILY 04/10/17 04/18/17 (formulary)] Omeprazole [PriLOSEC] 80 mg PO HS 04/10/17 04/18/17 Ranitidine HCl 150 mg PO BID 04/10/17 04/18/17 Zolpidem Tartrate [Ambien] 10 mg PO HS 04/10/17 04/18/17 metFORMIN HCL 1,000 mg PO BID 04/10/17 04/18/17 oxyCODONE HCL/ACETAMINOPHEN 1 tab PO Q6HR PRN 04/10/17 04/18/17 [Percocet 10-325 mg] Amoxicillin 500 mg PO TID 04/18/17 04/18/17 Chlorhexidine Gluconate [Periogard] 15 ml PO BID 04/18/17 04/18/17 Previous Rx's Medication Instructions Recorded Metoclopramide HCl [Reglan] 10 mg PO Q6HR PRN #15 tablet 04/18/17 Allergies Allergy/AdvReac Type Severity Reaction Status Date / Time acetaminophen [From [place]] Allergy Unknown Verified 04/18/17 19:05 hydrocodone [From [place]] Allergy Unknown Verified 04/18/17 19:05 pregabalin [From Lyrica] Allergy Unknown Verified 04/18/17 19:05 topiramate [From Topamax] Allergy Unknown Verified 04/18/17 19:05 tramadol [From Ultram] Allergy Unknown Verified 04/18/17 19:05 Review of Systems ROS Statement: Those systems with pertinent positive or pertinent negative responses have been documented in the HPI. ROS Other: All systems not noted in ROS Statement are negative. Constitutional: Reports: fever, other (myalgias) Eyes: Denies: eye pain ENT: Denies: ear pain Respiratory: Reports: cough (occasional) Cardiovascular: Denies: palpitations Endocrine: Reports: fatigue Gastrointestinal: Reports: nausea, diarrhea. Denies: vomiting Genitourinary: Denies: dysuria Musculoskeletal: Denies: back pain Skin: Denies: rash Neurological: Denies: headache Past Medical History Past Medical History: No Reported History, Diabetes Mellitus, Hyperlipidemia, Hypertension Additional Past Medical History / Comment(s): marfans syndrome, po and insulin for DM, borderline high cholestrol no meds just diet, IBS no tx at this time, right foot neuropathy History of Any Multi-Drug Resistant Organisms: None Reported Past Surgical History: Hysterectomy Additional Past Surgical History / Comment(s): spinal cord stimulator in upper back - can not have MRI's , partial hyst Past Anesthesia/Blood Transfusion Reactions: No Reported Reaction Past Psychological History: No Psychological Hx Reported Smoking Status: Never smoker Past Alcohol Use History: None Reported Past Drug Use History: None Reported - Past Family History Father Additional Family Medical History / Comment(s): Marfans passed at age 34 Mother Additional Family Medical History / Comment(s): suicide 2 yrs ago - bipolar General Exam Limitations: no limitations General appearance: alert, in no apparent distress Head exam: Present: atraumatic Eye exam: Present: normal appearance, PERRL ENT exam: Present: normal oropharynx Neck exam: Present: normal inspection Respiratory exam: Present: normal lung sounds bilaterally Cardiovascular Exam: Present: regular rate, normal rhythm GI/Abdominal exam: Present: soft, normal bowel sounds. Absent: distended, tenderness, guarding, rebound, rigid, pulsatile mass Extremities exam: Present: normal inspection. Absent: pedal edema, calf tenderness Neurological exam: Present: alert. Absent: motor sensory deficit Psychiatric exam: Present: normal affect, normal mood Skin exam: Present: normal color Course Vital Signs 04/18/17 04/18/17 17:10 19:24 Temperature 98.2 F 98.4 F Pulse Rate 90 84 Respiratory 18 16 Rate Blood Pressure 141/91 145/85 O2 Sat by Pulse 98 98 Oximetry Medical Decision Making - Medical Decision Making patient reevaluated and resting comfortably in bed. Patient admits she does have poorly controlled diabetes. Patient is updated on results and need for follow-up. - Lab Data Result diagrams: 04/18/17 18:55 04/18/17 18:55 Lab Results 04/18/17 04/18/17 04/18/17 Range/Units 18:55 18:55 18:55 WBC 6.4 (3.8-10.6) k/uL RBC 5.03 (3.80-5.40) m/uL Hgb 15.0 (11.4-16.0) gm/dL Hct 46.2 H (34.0-46.0) % MCV 91.9 (80.0-100.0) fL MCH 29.7 (25.0-35.0) pg MCHC 32.4 (31.0-37.0) g/dL RDW 14.0 (11.5-15.5) % Plt Count 356 (150-450) k/uL Neutrophils % 54 % Lymphocytes % 34 % Monocytes % 6 % Eosinophils % 4 % Basophils % 1 % Neutrophils # 3.4 (1.3-7.7) k/uL Lymphocytes # 2.1 (1.0-4.8) k/uL Monocytes # 0.4 (0-1.0) k/uL Eosinophils # 0.3 (0-0.7) k/uL Basophils # 0.0 (0-0.2) k/uL PT 9.6 (9.0-12.0) sec INR 0.9 (<1.2) APTT 22.5 (22.0-30.0) sec Sodium 138 (137-145) mmol/L Potassium 4.2 (3.5-5.1) mmol/L Chloride 100 (98-107) mmol/L Carbon Dioxide 21 L (22-30) mmol/L Anion Gap 17 mmol/L BUN 12 (7-17) mg/dL Creatinine 0.65 (0.52-1.04) mg/dL Est GFR (MDRD) Af Amer >60 (>60 ml/min/1.73 sqM) Est GFR (MDRD) Non-Af >60 (>60 ml/min/1.73 sqM) Glucose 271 H (74-99) mg/dL Calcium 9.5 (8.4-10.2) mg/dL Total Bilirubin 0.4 (0.2-1.3) mg/dL AST 31 (14-36) U/L ALT 63 H (9-52) U/L Alkaline Phosphatase 96 (38-126) U/L Total Protein 7.9 (6.3-8.2) g/dL Albumin 4.3 (3.5-5.0) g/dL Amylase <30 L (30-110) U/L Lipase 142 (23-300) U/L Urine Color Urine Appearance (Clear) Urine pH (5.0-8.0) Ur Specific [place] (1.001-1.035) Urine Protein (Negative) Urine Glucose (UA) (Negative) Urine Ketones (Negative) Urine Blood (Negative) Urine Nitrite (Negative) Urine Bilirubin (Negative) Urine Urobilinogen (<2.0) mg/dL Ur Leukocyte Esterase (Negative) 04/18/17 Range/Units 19:00 WBC (3.8-10.6) k/uL RBC (3.80-5.40) m/uL Hgb (11.4-16.0) gm/dL Hct (34.0-46.0) % MCV (80.0-100.0) fL MCH (25.0-35.0) pg MCHC (31.0-37.0) g/dL RDW (11.5-15.5) % Plt Count (150-450) k/uL Neutrophils % % Lymphocytes % % Monocytes % % Eosinophils % % Basophils % % Neutrophils # (1.3-7.7) k/uL Lymphocytes # (1.0-4.8) k/uL Monocytes # (0-1.0) k/uL Eosinophils # (0-0.7) k/uL Basophils # (0-0.2) k/uL PT (9.0-12.0) sec INR (<1.2) APTT (22.0-30.0) sec Sodium (137-145) mmol/L Potassium (3.5-5.1) mmol/L Chloride (98-107) mmol/L Carbon Dioxide (22-30) mmol/L Anion Gap mmol/L BUN (7-17) mg/dL Creatinine (0.52-1.04) mg/dL Est GFR (MDRD) Af Amer (>60 ml/min/1.73 sqM) Est GFR (MDRD) Non-Af (>60 ml/min/1.73 sqM) Glucose (74-99) mg/dL Calcium (8.4-10.2) mg/dL Total Bilirubin (0.2-1.3) mg/dL AST (14-36) U/L ALT (9-52) U/L Alkaline Phosphatase (38-126) U/L Total Protein (6.3-8.2) g/dL Albumin (3.5-5.0) g/dL Amylase (30-110) U/L Lipase (23-300) U/L Urine Color Light Yellow Urine Appearance Clear (Clear) Urine pH 5.5 (5.0-8.0) Ur Specific [place] 1.029 (1.001-1.035) Urine Protein Negative (Negative) Urine Glucose (UA) 4+ H (Negative) Urine Ketones Negative (Negative) Urine Blood Negative (Negative) Urine Nitrite Negative (Negative) Urine Bilirubin Negative (Negative) Urine Urobilinogen <2.0 (<2.0) mg/dL Ur Leukocyte Esterase Negative (Negative) - Radiology Data Radiology results: image reviewed (Chest x-ray and abdominal x-ray shows no acute process. Ultrasound shows gallbladder is not visualized. Common bile duct within normal limits. No focal liver defect.) Disposition Clinical Impression: Fatigue, Hyperglycemia Disposition: HOME SELF-CARE Condition: Stable Instructions: Fatigue (ED), Diabetic Hyperglycemia (ED) Additional Instructions: please follow-up with primary care physician in the next day or 2 for recheck. Return for increased fevers, pain, worsening symptoms or other concerns. Prescriptions: Metoclopramide HCl [Reglan] 10 mg PO Q6HR PRN #15 tablet PRN Reason: Nausea Referrals: Janelle Fernandez MD [STAFF PHYSICIAN] - 1-2 days Bianca Sanon MD [STAFF PHYSICIAN] - 1-2 days Time of Disposition: 20:38
[2017-04-18 19:02] LABS: Basophils % (A) 1 %; CH 30.2; Eosinophils # (A) 0.3 k/uL (0-0.7); Eosinophils % (A) 4 %; HCT 46.2 % (34.0-46.0); HDW 2.78; Luc # (Auto) 0.16; Luc % (Auto) 3; Lymphocytes # (A) 2.1 k/uL (1.0-4.8); Lymphocytes % (A) 34 %; MCH 29.7 pg (25.0-35.0); MCHC 32.4 g/dL (31.0-37.0); MCV 91.9 fL (80.0-100.0); Mean Platelet Volume 6.8; Monocytes # (A) 0.4 k/uL (0-1.0); Monocytes % (A) 6 %; Neutrophils # (A) 3.4 k/uL (1.3-7.7); Neutrophils % (A) 54 %; RBC 5.03 m/uL (3.80-5.40); WBC 6.4 k/uL (3.8-10.6); WBC (Perox) 6.39
[2017-04-18 19:08] LABS: Appearance,Urine Clear (Clear); Bilirubin,Urine Negative (Negative); Glucose,Urine (UA) 4+ (Negative); Ketones,Urine Negative (Negative); Leukocyte Esterase,Urine Negative (Negative); Nitrite,Urine Negative (Negative); PH, Urine 5.5 (5.0-8.0); Protein,Urine Negative (Negative); Specific Gravity,Urine 1.029 (1.001-1.035); UA Billing (MACRO vs. MICRO) CHEM; Urobilinogen,Urine <2.0 mg/dL (<2.0)
--- NOTE | 2017-04-18 19:10 | XR ---
EXAMINATION TYPE: XR chest 2V DATE OF EXAM: 04/18/2017 COMPARISON: 04/10/2017 HISTORY: Short of breath TECHNIQUE: Frontal and lateral views of the chest are obtained. FINDINGS: Heart and mediastinum are normal. Lungs are clear. Diaphragm is normal. Neurostimulator is noted in the midthoracic spine. Bony thorax is intact. IMPRESSION: No active cardiopulmonary disease. No change.
[2017-04-18 19:11] LABS: INR 0.9 (<1.2); Partial Thromboplastin Time 22.5 sec (22.0-30.0); Prothrombin Time 9.6 sec (9.0-12.0)
--- NOTE | 2017-04-18 19:11 | XR ---
EXAMINATION TYPE: XR KUB DATE OF EXAM: 04/18/2017 COMPARISON: NONE HISTORY: Cough and short of breath. Abdominal pain. TECHNIQUE: 2 views FINDINGS: There is no sign of intestinal obstruction or pneumoperitoneum. Fecal pattern is normal. Th ere is neurostimulator noted with the tips at the mid thoracic spine. There are no pathologic calcifi cations over the kidneys. There is no sign of a mass. IMPRESSION: Nonacute abdomen.
[2017-04-18 19:12] LABS: ALT 63 U/L (9-52); AST 31 U/L (14-36); Alkaline Phosphatase 96 U/L (38-126); Amylase <30 U/L (30-110); Anion Gap 17 mmol/L; Blood Urea Nitrogen 12 mg/dL (7-17); Calcium 9.5 mg/dL (8.4-10.2); Carbon Dioxide 21 mmol/L (22-30); Chloride 100 mmol/L (98-107); Glucose 271 mg/dL (74-99); Non-African American GFR(MDRD) >60 (>60 ml/min/1.73 sqM); Potassium 4.2 mmol/L (3.5-5.1); Sodium 138 mmol/L (137-145); Total Bilirubin 0.4 mg/dL (0.2-1.3); Total Protein 7.9 g/dL (6.3-8.2)
[2017-04-18 19:26] VITALS: RESP 16
--- NOTE | 2017-04-18 20:04 | US ---
EXAMINATION TYPE: US gallbladder DATE OF EXAM: 04/18/2017 COMPARISON: NONE CLINICAL HISTORY: Pain. EXAM MEASUREMENTS: Liver Length: 18.7 cm CBD: 0.54 cm Right Kidney: 10.8 x 4.0 x 3.0 cm Suboptimal exam due overlying bowel gas and patient body habitus Pancreas: Obscured by bowel gas Liver: Increased attenuation Gallbladder: Obscured by overlying bowel gas Evidence for sonographic Cabrera's sign: No CBD: wnl Right Kidney: No hydronephrosis or masses seen IMPRESSION: Gallbladder is not seen. No dilated ducts. No focal liver defect.
[2017-04-18] MEDS ORDERED: INSULIN ASPART 100 UNIT/ML 1 ML 10 ML VIAL SQ ONE (20:35)
[2017-04-18 20:54] VITALS: BP 124/61; PULSE 60; TEMP 98.3
== END 2017-04-18 20:55 | disposition home or self-care (01) ==
LOC: EC 16:42
DX: E11.65 Type 2 diabetes mellitus with hyperglycemia (principal); R53.83 Other fatigue; E78.5 Hyperlipidemia, unspecified; I10 Essential (primary) hypertension; K58.9 Irritable bowel syndrome, unspecified; Z79.4 Long term (current) use of insulin; Z79.899 Other long term (current) drug therapy; Z88.5 Allergy status to narcotic agent; Z88.6 Allergy status to analgesic agent; Z88.8 Allergy status to other drugs, medicaments and biological substances
CPT/HCPCS: 36415; 71020; 74000; 76705; 80053; 80074; 81003; 82150; 83690; 85025; 85610; 85730; 96360; 96361; 99285

== ENCOUNTER 2017-04-26 16:39 | Inpatient (IN) | payer OTHER ==
[2017-04-26] MEDS ORDERED: SODIUM CHLORIDE 0.9% 1,000 ML IV STA (18:02)
[2017-04-26] MEDS ORDERED: PIPERACILLIN-TAZOBACTAM 3.375 GM in DEXTROSE/WATER 1 50ML.BAG IVPB STA (18:03)
--- NOTE | 2017-04-26 18:07 | ED ---
General Adult HPI <Eran Emery - Last Filed: 04/26/17 18:33> - General Source: patient, RN notes reviewed Mode of arrival: ambulatory Limitations: no limitations <Pia Martinez - Last Filed: 04/26/17 19:08> - General Chief complaint: Abdominal Pain Stated complaint: Recheck, Abd Pain, sent by Time Seen by Provider: 04/26/17 17:57 - History of Present Illness Initial comments: 36 yo female presents to the ER with cc of right upper quadrant abdominal pain and an abnormal HIDA scan outpatient today. She's been doing this or upper quadrant pain on and off for the last few weeks. She had 2 ultrasounds done that did show some gallstones before unable to fully evaluate the gallbladder. She states she went for HIDA scan and she was told to come here. She states she is having some pain. She has had fevers on and off nausea and vomiting on and off. Today she states mostly just this right upper quadrant pain that radiates to the back. She was concerned and her doctor sent her here. Patient denies any recent shortness of breath, chest pain, back pain, numbness or tingling, dysuria or hematuria, constipation or diarrhea, headaches or visual changes, or any other current symptoms. (Pia Martinez) - Related Data Home Medications Medication Instructions Recorded Confirmed ALPRAZolam [Xanax] 0.25 mg PO TID 04/10/17 04/26/17 Cetirizine HCl [Zyrtec] 10 mg PO HS 04/10/17 04/26/17 Furosemide [Lasix] 40 mg PO DAILY 04/10/17 04/26/17 Gabapentin [Neurontin] 900 mg PO TID 04/10/17 04/26/17 Metoprolol Tartrate [Lopressor] 50 mg PO HS 04/10/17 04/26/17 Multivitamins, Thera [Multivitamin 1 tab PO DAILY 04/10/17 04/26/17 (formulary)] Omeprazole [PriLOSEC] 80 mg PO HS 04/10/17 04/26/17 Ranitidine HCl 150 mg PO BID 04/10/17 04/26/17 Zolpidem Tartrate [Ambien] 10 mg PO HS 04/10/17 04/26/17 metFORMIN HCL 1,000 mg PO BID 04/10/17 04/26/17 oxyCODONE HCL/ACETAMINOPHEN 1 tab PO Q6HR PRN 04/10/17 04/26/17 [Percocet 10-325 mg] Canagliflozin [Invokana] 300 mg PO DAILY 04/26/17 04/26/17 Allergies Allergy/AdvReac Type Severity Reaction Status Date / Time hydrocodone [From [place]] Allergy Unknown Verified 04/26/17 18:16 pregabalin [From [place]] Allergy Unknown Verified 04/26/17 18:16 topiramate [From Topamax] Allergy Unknown Verified 04/26/17 18:16 tramadol [From Ultram] Allergy Unknown Verified 04/26/17 18:16 Review of Systems ROS Other: All systems not noted in ROS Statement are negative. <Eran Emery - Last Filed: 04/26/17 18:33> ROS Other: All systems not noted in ROS Statement are negative. <Pia Martinez - Last Filed: 04/26/17 19:08> ROS Statement: Those systems with pertinent positive or pertinent negative responses have been documented in the HPI. Past Medical History Past Medical History: No Reported History, Diabetes Mellitus, Hyperlipidemia, Hypertension Additional Past Medical History / Comment(s): marfans syndrome, po and insulin for DM, borderline high cholestrol no meds just diet, IBS no tx at this time, right foot neuropathy History of Any Multi-Drug Resistant Organisms: None Reported Past Surgical History: Hysterectomy Additional Past Surgical History / Comment(s): spinal cord stimulator in upper back - can not have MRI's , partial hyst Past Anesthesia/Blood Transfusion Reactions: No Reported Reaction Past Psychological History: No Psychological Hx Reported Smoking Status: Never smoker Past Alcohol Use History: None Reported Past Drug Use History: None Reported - Past Family History Father Additional Family Medical History / Comment(s): Marfans passed at age 34 Mother Additional Family Medical History / Comment(s): suicide 2 yrs ago - bipolar <Pia Martinez - Last Filed: 04/26/17 19:08> General Exam <Eran Emery - Last Filed: 04/26/17 18:33> Limitations: no limitations <Pia Martinez - Last Filed: 04/26/17 19:08> - General Exam Comments Initial Comments: General: The patient is awake and alert, in no distress, and does not appear acutely ill. Eye: Pupils are equal, round and reactive to light, extra-ocular movements are intact; there is normal conjunctiva bilaterally. No signs of icterus. Ears, nose, mouth and throat: There are moist mucous membranes and no oral lesions. Neck: The neck is supple, there is no tenderness. Cardiovascular: There is a regular rate and rhythm. No murmur, rub or gallop is appreciated. Respiratory: Lungs are clear to auscultation, respirations are non-labored, breath sounds are equal. No wheezes, stridor, rales, or rhonchi. Gastrointestinal: Soft, non-distended, tenderness in the right upper quadrant of the abdomen without masses or organomegaly noted. There is no rebound or guarding present. No CVA tenderness. Bowel sounds are unremarkable. Positive Cabrera sign Back: There is no tenderness to palpation in the midline. There is no obvious deformity. No rashes noted. Musculoskeletal: Normal ROM, no tenderness, There is no pedal edema. There is no calf tenderness or swelling. Sensation intact. Pulses equal bilaterally 2+. Neurological: CN II-XII intact, There are no obvious motor or sensory deficits. Coordination appears grossly intact. Speech is normal. Skin: Skin is warm and dry and no rashes or lesions are noted. Psychiatric: Cooperative, appropriate mood & affect, normal judgment. (Pia Martinez) Course <Eran Emery - Last Filed: 04/26/17 18:33> <Pia Martinez - Last Filed: 04/26/17 19:08> Vital Signs 04/26/17 17:07 Temperature 97.1 F L Pulse Rate 78 Respiratory 18 Rate Blood Pressure 137/85 O2 Sat by Pulse 97 Oximetry - Reevaluation(s) Reevaluation #1: 04/26/17 18:33 PA supervision: I did personally do a [id number] evaluation the patient and did discuss the findings with her. She does demonstrate right upper quadrant tenderness palpation. I did discuss the case with Dr. Castillo. Patient will be admitted nothing by mouth after midnight IV antibiotics IV fluids. (Eran Emery) Medical Decision Making <Eran Emery - Last Filed: 04/26/17 18:33> - Lab Data Result diagrams: 04/26/17 18:19 04/26/17 18:19 <Pia Martinez - Last Filed: 04/26/17 19:08> - Medical Decision Making 28-year-old female presents emergency Department chief complaint of right upper quadrant abdominal pain with an outpatient HIDA scan that does show suspicion for acute cholecystitis. (Pia Martinez) - Lab Data Lab Results 04/26/17 04/26/17 04/26/17 Range/Units 18:19 18:19 18:19 WBC 7.4 (3.8-10.6) k/uL RBC 4.97 (3.80-5.40) m/uL Hgb 14.6 (11.4-16.0) gm/dL Hct 44.4 (34.0-46.0) % MCV 89.4 (80.0-100.0) fL MCH 29.3 (25.0-35.0) pg MCHC 32.8 (31.0-37.0) g/dL RDW 15.4 (11.5-15.5) % Plt Count 378 (150-450) k/uL Neutrophils % 62 % Lymphocytes % 28 % Monocytes % 6 % Eosinophils % 2 % Basophils % 1 % Neutrophils # 4.6 (1.3-7.7) k/uL Lymphocytes # 2.1 (1.0-4.8) k/uL Monocytes # 0.4 (0-1.0) k/uL Eosinophils # 0.2 (0-0.7) k/uL Basophils # 0.1 (0-0.2) k/uL PT (9.0-12.0) sec INR (<1.2) APTT (22.0-30.0) sec Sodium 139 (137-145) mmol/L Potassium 3.8 (3.5-5.1) mmol/L Chloride 102 (98-107) mmol/L Carbon Dioxide 26 (22-30) mmol/L Anion Gap 11 mmol/L BUN 12 (7-17) mg/dL Creatinine 0.60 (0.52-1.04) mg/dL Est GFR (MDRD) Af Amer >60 (>60 ml/min/1.73 sqM) Est GFR (MDRD) Non-Af >60 (>60 ml/min/1.73 sqM) Glucose 161 H (74-99) mg/dL Plasma Lactic Acid [place] (0.7-2.0) mmol/L Calcium 9.3 (8.4-10.2) mg/dL Total Bilirubin 0.6 (0.2-1.3) mg/dL AST 47 H (14-36) U/L ALT 87 H (9-52) U/L Alkaline Phosphatase 110 (38-126) U/L Total Protein 7.5 (6.3-8.2) g/dL Albumin 4.3 (3.5-5.0) g/dL Amylase 33 (30-110) U/L Lipase 155 (23-300) U/L Urine Color Urine Appearance (Clear) Urine pH (5.0-8.0) Ur Specific [place] (1.001-1.035) Urine Protein (Negative) Urine Glucose (UA) (Negative) Urine Ketones (Negative) Urine Blood (Negative) Urine Nitrite (Negative) Urine Bilirubin (Negative) Urine Urobilinogen (<2.0) mg/dL Ur Leukocyte Esterase (Negative) Urine HCG, Qual (Not Detectd) Blood Type O Positive Blood Type Recheck No Antibody Screen NEGATIVE Spec Expiration Date 04/29/2017231804/26/17 04/26/17 04/26/17 Range/Units 18:19 18:19 18:19 WBC (3.8-10.6) k/uL RBC (3.80-5.40) m/uL Hgb (11.4-16.0) gm/dL Hct (34.0-46.0) % MCV (80.0-100.0) fL MCH (25.0-35.0) pg MCHC (31.0-37.0) g/dL RDW (11.5-15.5) % Plt Count (150-450) k/uL Neutrophils % % Lymphocytes % % Monocytes % % Eosinophils % % Basophils % % Neutrophils # (1.3-7.7) k/uL Lymphocytes # (1.0-4.8) k/uL Monocytes # (0-1.0) k/uL Eosinophils # (0-0.7) k/uL Basophils # (0-0.2) k/uL PT 9.9 (9.0-12.0) sec INR 1.0 (<1.2) APTT 22.1 (22.0-30.0) sec Sodium (137-145) mmol/L Potassium (3.5-5.1) mmol/L Chloride (98-107) mmol/L Carbon Dioxide (22-30) mmol/L Anion Gap mmol/L BUN (7-17) mg/dL Creatinine (0.52-1.04) mg/dL Est GFR (MDRD) Af Amer (>60 ml/min/1.73 sqM) Est GFR (MDRD) Non-Af (>60 ml/min/1.73 sqM) Glucose (74-99) mg/dL Plasma Lactic Acid [place] (0.7-2.0) mmol/L Calcium (8.4-10.2) mg/dL Total Bilirubin (0.2-1.3) mg/dL AST (14-36) U/L ALT (9-52) U/L Alkaline Phosphatase (38-126) U/L Total Protein (6.3-8.2) g/dL Albumin (3.5-5.0) g/dL Amylase (30-110) U/L Lipase (23-300) U/L Urine Color Light Yellow Urine Appearance Clear (Clear) Urine pH 6.0 (5.0-8.0) Ur Specific [place] 1.029 (1.001-1.035) Urine Protein Negative (Negative) Urine Glucose (UA) 4+ H (Negative) Urine Ketones Trace H (Negative) Urine Blood Negative (Negative) Urine Nitrite Negative (Negative) Urine Bilirubin Negative (Negative) Urine Urobilinogen <2.0 (<2.0) mg/dL Ur Leukocyte Esterase Negative (Negative) Urine HCG, Qual Not Detected (Not Detectd) Blood Type Blood Type Recheck Antibody Screen Spec Expiration Date 04/26/17 Range/Units 18:19 WBC (3.8-10.6) k/uL RBC (3.80-5.40) m/uL Hgb (11.4-16.0) gm/dL Hct (34.0-46.0) % MCV (80.0-100.0) fL MCH (25.0-35.0) pg MCHC (31.0-37.0) g/dL RDW (11.5-15.5) % Plt Count (150-450) k/uL Neutrophils % % Lymphocytes % % Monocytes % % Eosinophils % % Basophils % % Neutrophils # (1.3-7.7) k/uL Lymphocytes # (1.0-4.8) k/uL Monocytes # (0-1.0) k/uL Eosinophils # (0-0.7) k/uL Basophils # (0-0.2) k/uL PT (9.0-12.0) sec INR (<1.2) APTT (22.0-30.0) sec Sodium (137-145) mmol/L Potassium (3.5-5.1) mmol/L Chloride (98-107) mmol/L Carbon Dioxide (22-30) mmol/L Anion Gap mmol/L BUN (7-17) mg/dL Creatinine (0.52-1.04) mg/dL Est GFR (MDRD) Af Amer (>60 ml/min/1.73 sqM) Est GFR (MDRD) Non-Af (>60 ml/min/1.73 sqM) Glucose (74-99) mg/dL Plasma Lactic Acid [place] 2.7 H* (0.7-2.0) mmol/L Calcium (8.4-10.2) mg/dL Total Bilirubin (0.2-1.3) mg/dL AST (14-36) U/L ALT (9-52) U/L Alkaline Phosphatase (38-126) U/L Total Protein (6.3-8.2) g/dL Albumin (3.5-5.0) g/dL Amylase (30-110) U/L Lipase (23-300) U/L Urine Color Urine Appearance (Clear) Urine pH (5.0-8.0) Ur Specific [place] (1.001-1.035) Urine Protein (Negative) Urine Glucose (UA) (Negative) Urine Ketones (Negative) Urine Blood (Negative) Urine Nitrite (Negative) Urine Bilirubin (Negative) Urine Urobilinogen (<2.0) mg/dL Ur Leukocyte Esterase (Negative) Urine HCG, Qual (Not Detectd) Blood Type Blood Type Recheck Antibody Screen Spec Expiration Date Disposition <Eran Emery - Last Filed: 04/26/17 18:33> Time of Disposition: 19:08 <Pia Martinez - Last Filed: 11/16/17 19:08> Clinical Impression: Acute cholecystitis, Elevated lactic acid level Disposition: ADMITTED IP TO THIS HOSP Condition: Stable Referrals: Nellie Poon MD [Primary Care Provider] - 1-2 days
[2017-04-26 18:32] LABS: Basophils # (A) 0.1 k/uL (0-0.2); Basophils % (A) 1 %; CH 29.3; CHCM 32.9; Eosinophils # (A) 0.2 k/uL (0-0.7); Eosinophils % (A) 2 %; HCT 44.4 % (34.0-46.0); HDW 2.71; HGB 14.6 gm/dL (11.4-16.0); Luc # (Auto) 0.07; Luc % (Auto) 1; Lymphocytes # (A) 2.1 k/uL (1.0-4.8); Lymphocytes % (A) 28 %; MCH 29.3 pg (25.0-35.0); MCHC 32.8 g/dL (31.0-37.0); MCV 89.4 fL (80.0-100.0); Mean Platelet Volume 7.2; Monocytes # (A) 0.4 k/uL (0-1.0); Monocytes % (A) 6 %; Neutrophils # (A) 4.6 k/uL (1.3-7.7); Neutrophils % (A) 62 %; RBC 4.97 m/uL (3.80-5.40); RDW 15.4 % (11.5-15.5); WBC 7.4 k/uL (3.8-10.6); WBC (Perox) 7.46
[2017-04-26 18:33] LABS: Appearance,Urine Clear (Clear); Bilirubin,Urine Negative (Negative); Glucose,Urine (UA) 4+ (Negative); Ketones,Urine Trace (Negative); Leukocyte Esterase,Urine Negative (Negative); Nitrite,Urine Negative (Negative); Protein,Urine Negative (Negative); Specific Gravity,Urine 1.029 (1.001-1.035); UA Billing (MACRO vs. MICRO) CHEM; Urobilinogen,Urine <2.0 mg/dL (<2.0)
[2017-04-26] MEDS ORDERED: HYDROmorphone 1 MG/ML 1 ML SYRINGE IVP STA (18:33)
[2017-04-26 18:42] LABS: ALT 87 U/L (9-52); AST 47 U/L (14-36); Alkaline Phosphatase 110 U/L (38-126); Amylase 33 U/L (30-110); Anion Gap 11 mmol/L; Blood Urea Nitrogen 12 mg/dL (7-17); Calcium 9.3 mg/dL (8.4-10.2); Carbon Dioxide 26 mmol/L (22-30); Chloride 102 mmol/L (98-107); Glucose 161 mg/dL (74-99); Non-African American GFR(MDRD) >60 (>60 ml/min/1.73 sqM); Potassium 3.8 mmol/L (3.5-5.1); Sodium 139 mmol/L (137-145); Total Bilirubin 0.6 mg/dL (0.2-1.3); Total Protein 7.5 g/dL (6.3-8.2)
[2017-04-26 18:46] LABS: Partial Thromboplastin Time 22.1 sec (22.0-30.0); Prothrombin Time 9.9 sec (9.0-12.0)
[2017-04-26] MEDS ORDERED: NALOXONE 0.4 MG/ML 1 ML VIAL IV PRN (18:58)
[2017-04-26] MEDS: SODIUM CHLORIDE 0.9% 1,000 ML IV SCH (20:07)
[2017-04-26 22:08] VITALS: BMI 33.4
[2017-04-26] MEDS: ONDANSETRON 4 MG/2 ML VIAL IVP PRN (22:40)
[2017-04-26] MEDS: HYDROmorphone 0.5 MG/0.5 ML SYRINGE IVP PRN (22:45)
[2017-04-26] MEDS: ZOLPIDEM 10 MG TAB PO SCH (22:57)
[2017-04-26] MEDS: ALPRAZolam 0.25 MG TAB PO SCH (22:57)
[2017-04-26] MEDS: METOPROLOL TARTRATE 50 MG TAB PO SCH (23:25)
[2017-04-26] MEDS: GABAPENTIN 300 MG CAP PO SCH (23:25)
[2017-04-26] MEDS: FAMOTIDINE 20 MG TAB PO SCH (23:25)
[2017-04-27] MEDS: ONDANSETRON 4 MG/2 ML VIAL IVP PRN ×3 (07:35→21:18)
[2017-04-27] MEDS: HYDROmorphone 0.5 MG/0.5 ML SYRINGE IVP PRN ×4 (07:35→22:48)
[2017-04-27] MEDS ORDERED: NON-FORMULARY DRUG (Canagliflozin [Invokana] 300 MG) PO SCH (09:00)
[2017-04-27] MEDS ORDERED: metFORMIN 500 MG TAB PO SCH (09:00)
[2017-04-27] MEDS ORDERED: FUROSEMIDE 40 MG TAB PO SCH (09:00)
[2017-04-27] MEDS: ALPRAZolam 0.25 MG TAB PO SCH (11:40)
[2017-04-27] MEDS: FAMOTIDINE 20 MG TAB PO SCH (11:41)
[2017-04-27] MEDS: GABAPENTIN 300 MG CAP PO SCH ×3 (11:45→21:19)
[2017-04-27 12:40] LABS: Glucose,Whole Blood 113 mg/dL (75-99)
[2017-04-27] MEDS: INSULIN ASPART 100 UNIT/ML 1 ML 10 ML VIAL SQ SCH ×2 (12:57→16:58)
[2017-04-27] MEDS: SODIUM CHLORIDE 0.9% 1,000 ML IV SCH ×2 (12:57→21:19)
[2017-04-27] MEDS: HEPARIN SODIUM,PORCINE 5,000 UNIT/ML 1 ML VIAL SQ SCH (13:10)
[2017-04-27] MEDS ORDERED: IV FLUID CONTINUATION 225 ML IV ONE (13:24)
--- NOTE | 2017-04-27 13:47 | P.GSHP ---
History of Present Illness H&P Date: 04/26/17 Chief Complaint: Right upper quadrant pain This is a 28-year-old female who had complaints of right quadrant pain. Patient had a HIDA scan which showed nonvisualization of gallbladder suggestive of acute cholecystitis. Patient's pain radiates to her back. She denies any nausea or vomiting. Past Medical History Past Medical History: No Reported History, Diabetes Mellitus, Hyperlipidemia, Hypertension Additional Past Medical History / Comment(s): marfans syndrome, po and insulin for DM, borderline high cholestrol no meds just diet, IBS no tx at this time, right foot neuropathy History of Any Multi-Drug Resistant Organisms: None Reported Past Surgical History: Hysterectomy Additional Past Surgical History / Comment(s): spinal cord stimulator in upper back - can not have MRI's , partial hyst Past Anesthesia/Blood Transfusion Reactions: No Reported Reaction Past Psychological History: No Psychological Hx Reported Smoking Status: Never smoker Past Alcohol Use History: None Reported Past Drug Use History: None Reported - Past Family History Father Additional Family Medical History / Comment(s): Marfans passed at age 34 Mother Additional Family Medical History / Comment(s): suicide 2 yrs ago - bipolar Medications and Allergies Home Medications Medication Instructions Recorded Confirmed Type ALPRAZolam [Xanax] 0.25 mg PO TID 04/10/17 04/26/17 History Cetirizine HCl [Zyrtec] 10 mg PO HS 04/10/17 04/26/17 History Furosemide [Lasix] 40 mg PO DAILY 04/10/17 04/26/17 History Gabapentin [Neurontin] 900 mg PO TID 04/10/17 04/26/17 History Metoprolol Tartrate [Lopressor] 50 mg PO HS 04/10/17 04/26/17 History Multivitamins, Thera [Multivitamin 1 tab PO DAILY 04/10/17 04/26/17 History (formulary)] Omeprazole [PriLOSEC] 80 mg PO HS 04/10/17 04/26/17 History Ranitidine HCl 150 mg PO BID 04/10/17 04/26/17 History Zolpidem Tartrate [Ambien] 10 mg PO HS 04/10/17 04/26/17 History metFORMIN HCL 1,000 mg PO BID 04/10/17 04/26/17 History oxyCODONE HCL/ACETAMINOPHEN 1 tab PO Q6HR PRN 04/10/17 04/26/17 History [Percocet 10-325 mg] Canagliflozin [Invokana] 300 mg PO DAILY 04/26/17 04/26/17 History Allergies Allergy/AdvReac Type Severity Reaction Status Date / Time hydrocodone [From [place]] Allergy Severe Itching Verified 04/26/17 22:11 tramadol [From Ultram] Allergy Severe Itching Verified 04/26/17 22:11 pregabalin [From Lyrica] Allergy Tingling Verified 04/26/17 22:11 in feet, bed wetting topiramate [From Topamax] Allergy increases Verified 04/26/17 22:11 blood pressure Surgical - Exam Vital Signs Temp Pulse Resp BP Pulse Ox 97.1 F L 78 18 137/85 97 04/26/17 17:07 04/26/17 17:07 04/26/17 17:07 04/26/17 17:07 04/26/17 17:07 - General well developed, no distress - Eyes PERRL - ENT normal pinna - Neck no masses - Respiratory normal expansion - Cardiovascular Rhythm: regular - Abdomen Mild right quadrant tenderness Abdomen: soft Results - Labs 04/26/17 18:19 04/26/17 18:19 Abnormal Lab Results - Last 24 Hours (Table) 04/26/17 04/26/17 04/26/17 Range/Units 18:19 18:19 18:19 Glucose 161 H (74-99) mg/dL POC Glucose (mg/dL) (75-99) mg/dL Plasma Lactic Acid Kyle 2.7 H* (0.7-2.0) mmol/L AST 47 H (14-36) U/L ALT 87 H (9-52) U/L Urine Glucose (UA) 4+ H (Negative) Urine Ketones Trace H (Negative) 04/27/17 Range/Units 12:33 Glucose (74-99) mg/dL POC Glucose (mg/dL) 113 H (75-99) mg/dL Plasma Lactic Acid Kyle (0.7-2.0) mmol/L AST (14-36) U/L ALT (9-52) U/L Urine Glucose (UA) (Negative) Urine Ketones (Negative) Diabetes panel 04/26/17 Range/Units 18:19 Sodium 139 (137-145) mmol/L Potassium 3.8 (3.5-5.1) mmol/L Chloride 102 (98-107) mmol/L Carbon Dioxide 26 (22-30) mmol/L BUN 12 (7-17) mg/dL Creatinine 0.60 (0.52-1.04) mg/dL Glucose 161 H (74-99) mg/dL Calcium 9.3 (8.4-10.2) mg/dL AST 47 H (14-36) U/L ALT 87 H (9-52) U/L Alkaline Phosphatase 110 (38-126) U/L Total Protein 7.5 (6.3-8.2) g/dL Albumin 4.3 (3.5-5.0) g/dL Calcium panel 04/26/17 Range/Units 18:19 Calcium 9.3 (8.4-10.2) mg/dL Albumin 4.3 (3.5-5.0) g/dL Pituitary panel 04/26/17 Range/Units 18:19 Sodium 139 (137-145) mmol/L Potassium 3.8 (3.5-5.1) mmol/L Chloride 102 (98-107) mmol/L Carbon Dioxide 26 (22-30) mmol/L BUN 12 (7-17) mg/dL Creatinine 0.60 (0.52-1.04) mg/dL Glucose 161 H (74-99) mg/dL Calcium 9.3 (8.4-10.2) mg/dL Adrenal panel 04/26/17 Range/Units 18:19 Sodium 139 (137-145) mmol/L Potassium 3.8 (3.5-5.1) mmol/L Chloride 102 (98-107) mmol/L Carbon Dioxide 26 (22-30) mmol/L BUN 12 (7-17) mg/dL Creatinine 0.60 (0.52-1.04) mg/dL Glucose 161 H (74-99) mg/dL Calcium 9.3 (8.4-10.2) mg/dL Total Bilirubin 0.6 (0.2-1.3) mg/dL AST 47 H (14-36) U/L ALT 87 H (9-52) U/L Alkaline Phosphatase 110 (38-126) U/L Total Protein 7.5 (6.3-8.2) g/dL Albumin 4.3 (3.5-5.0) g/dL Assessment and Plan Assessment: Acute cholecystitis. We'll perform laparoscopic cholecystectomy.
[2017-04-27] MEDS ORDERED: fentaNYL (PF) 50 MCG/ML 2 ML AMP ONE (14:16)
[2017-04-27] MEDS ORDERED: LIDOCAINE 1% INJ 10MG/ML (20 ML MDV) ONE (14:16)
[2017-04-27] MEDS ORDERED: SUCCINYLCHOLINE CHLORIDE 100 MG/5 ML SYR IV ONE (14:16)
[2017-04-27] MEDS ORDERED: ROCURONIUM BROMIDE 10 MG/ML 10 ML VIAL IV ONE (14:16)
[2017-04-27] MEDS ORDERED: NEOSTIGMINE 1 MG/ML 10 ML VIAL ONE (14:16)
[2017-04-27] MEDS ORDERED: GLYCOPYRROLATE 0.2 MG/ML 2 ML VIAL ONE (14:16)
[2017-04-27] MEDS ORDERED: PROPOFOL 10 MG/ML 20 ML VIAL IV ONE (14:16)
[2017-04-27] MEDS ORDERED: ePHEDrine SULFATE/0.9% NACL/PF 50 MG/5 ML SYRINGE IV ONE (14:16)
[2017-04-27] MEDS ORDERED: MIDAZOLAM 2 MG/2 ML VIAL ONE (14:16)
[2017-04-27] MEDS ORDERED: LACTATED RINGERS 1,000 ML IV ONE ×2 (14:20→15:39)
[2017-04-27] MEDS: ceFAZolin IN SWFI 2 GM/20 ML SYRINGE IVP STA ×2 (14:20→14:28)
[2017-04-27] MEDS ORDERED: BUPIVACAINE (PF) 0.25% 30 ML VIAL SQ ONE ×3 (14:22→14:35)
--- NOTE | 2017-04-27 14:53 | P.CONS ---
History of Present Illness - Reason for Consult Recommendations regarding diuretic therapy - History of Present Illness Patient was admitted for cholecystitis and patient underwent cholecystectomy postoperatively patient is clinically doing well patient is on the metoprolol as well as diuretic therapy. Patient doesn't have any history of can start failure patient is known to me from her previous hospitalization, at that time patient was a valid for hypoxemia. Patient uses diuretic therapy for peripheral edema patient is getting IV fluids because of which diuretic therapy will be held and patient is on Zosyn at this point of time for cholecystitis patient underwent cholecystectomy. Review of Systems REVIEW OF SYSTEMS: CONSTITUTIONAL: No fever, no malaise, no fatigue. HEENT: No recent visual problems or hearing problems. Denied any sore throat. CARDIOVASCULAR: No chest pain, orthopnea, PND, no palpitations, no syncope. PULMONARY: No shortness of breath, no cough, no hemoptysis. GASTROINTESTINAL: No diarrhea, no nausea, no vomiting, no abdominal pain. Normoactive bowel sounds. NEUROLOGICAL: No headaches, no weakness, no numbness. HEMATOLOGICAL: Denies any bleeding or petechiae. GENITOURINARY: Denies any burning micturition, frequency, or urgency. MUSCULOSKELETAL/RHEUMATOLOGICAL: Denies any joint pain, swelling, or any muscle pain. ENDOCRINE: Denies any polyuria or polydipsia. The rest of the 14-point review of systems is negative. Patient is just coming out of anesthesia denied any abdominal pain Past Medical History Past Medical History: No Reported History, Diabetes Mellitus, Hyperlipidemia, Hypertension Additional Past Medical History / Comment(s): marfans syndrome, po and insulin for DM, borderline high cholestrol no meds just diet, IBS no tx at this time, right foot neuropathy History of Any Multi-Drug Resistant Organisms: None Reported Past Surgical History: Hysterectomy Additional Past Surgical History / Comment(s): spinal cord stimulator in upper back - can not have MRI's , partial hyst Past Anesthesia/Blood Transfusion Reactions: No Reported Reaction Past Psychological History: No Psychological Hx Reported Smoking Status: Never smoker Past Alcohol Use History: None Reported Past Drug Use History: None Reported - Past Family History Father Additional Family Medical History / Comment(s): Marfans passed at age 34 Mother Additional Family Medical History / Comment(s): suicide 2 yrs ago - bipolar Medications and Allergies Home Medications Medication Instructions Recorded Confirmed Type ALPRAZolam [Xanax] 0.25 mg PO TID 04/10/17 04/26/17 History Cetirizine HCl [Zyrtec] 10 mg PO HS 04/10/17 04/26/17 History Furosemide [Lasix] 40 mg PO DAILY 04/10/17 04/26/17 History Gabapentin [Neurontin] 900 mg PO TID 04/10/17 04/26/17 History Metoprolol Tartrate [Lopressor] 50 mg PO HS 04/10/17 04/26/17 History Multivitamins, Thera [Multivitamin 1 tab PO DAILY 04/10/17 04/26/17 History (formulary)] Omeprazole [PriLOSEC] 80 mg PO HS 04/10/17 04/26/17 History Ranitidine HCl 150 mg PO BID 04/10/17 04/26/17 History Zolpidem Tartrate [Ambien] 10 mg PO HS 04/10/17 04/26/17 History metFORMIN HCL 1,000 mg PO BID 04/10/17 04/26/17 History oxyCODONE HCL/ACETAMINOPHEN 1 tab PO Q6HR PRN 04/10/17 04/26/17 History [Percocet 10-325 mg] Canagliflozin [Invokana] 300 mg PO DAILY 04/26/17 04/26/17 History Allergies Allergy/AdvReac Type Severity Reaction Status Date / Time hydrocodone [From [place]] Allergy Severe Itching Verified 04/26/17 22:11 tramadol [From Ultram] Allergy Severe Itching Verified 04/26/17 22:11 pregabalin [From Lyrica] Allergy Tingling Verified 04/26/17 22:11 in feet, bed wetting topiramate [From Topamax] Allergy increases Verified 04/26/17 22:11 blood pressure Physical Exam Vitals: Vital Signs Temp Pulse Pulse Resp BP BP Pulse Ox 04/27/17 13:25 97.1 F L 61 18 129/80 100 04/27/17 11:21 97.6 F 59 L 20 123/62 94 L 04/27/17 09:25 97.2 F L 59 L 20 134/68 97 04/27/17 08:05 97.2 F L 59 L 21 134/68 97 04/27/17 00:00 18 04/26/17 23:35 59 L 18 04/26/17 23:00 97.1 F L 59 L 18 116/65 98 04/26/17 20:09 67 16 145/67 100 04/26/17 18:33 97.1 F L 61 20 136/75 96 04/26/17 17:07 97.1 F L 78 18 137/85 97 Intake and Output 04/26/17 04/27/17 04/27/17 22:59 06:59 14:59 Intake Total 225 Output Total 300 1100 350 Balance -300 -1100 -125 Intake: IV 225 Output: Urine 300 1100 350 Other: Voiding Method Toilet # Voids 1 Weight 99.79 kg PHYSICAL EXAMINATION: GENERAL: The patient is alert and oriented x3, not in any acute distress. Well developed, well nourished. HEENT: Pupils are round and equally reacting to light. EOMI. No scleral icterus. No conjunctival pallor. Normocephalic, atraumatic. No pharyngeal erythema. No thyromegaly. CARDIOVASCULAR: S1 and S2 present. No murmurs, rubs, or gallops. PULMONARY: Chest is clear to auscultation, no wheezing or crackles. ABDOMEN: Soft, nontender, nondistended, normoactive bowel sounds. No palpable organomegaly. Surgical site areas appears to be clean MUSCULOSKELETAL: No joint swelling or deformity. EXTREMITIES: No cyanosis, clubbing, or pedal edema. NEUROLOGICAL: Gross neurological examination did not reveal any focal deficits. SKIN: No rashes. Results CBC & Chem 7: 04/26/17 18:19 04/26/17 18:19 Labs: Abnormal Lab Results - Last 24 Hours (Table) 04/26/17 04/26/17 04/26/17 Range/Units 18:19 18:19 18:19 Glucose 161 H (74-99) mg/dL POC Glucose (mg/dL) (75-99) mg/dL Plasma Lactic Acid Kyle 2.7 H* (0.7-2.0) mmol/L AST 47 H (14-36) U/L ALT 87 H (9-52) U/L Urine Glucose (UA) 4+ H (Negative) Urine Ketones Trace H (Negative) 04/27/17 Range/Units 12:33 Glucose (74-99) mg/dL POC Glucose (mg/dL) 113 H (75-99) mg/dL Plasma Lactic Acid Kyle (0.7-2.0) mmol/L AST (14-36) U/L ALT (9-52) U/L Urine Glucose (UA) (Negative) Urine Ketones (Negative) Assessment and Plan Plan: #1 cholecystitis: Status post cholecystectomy patient is on Zosyn pain management and DVT prophylaxis per primary service. #2 anxiety disorder 3 diabetes mellitus type II #4 hyperlipidemia #5 hypertension #6 Marfan syndrome #7 peripheral neuropathy #8 gastroesophageal reflux disease Medication reconciliation will be taken care of and patient will be continued on appropriate home medications for her chronic medical problems
[2017-04-27] MEDS ORDERED: ALPRAZolam 0.25 MG TAB PO PRN (14:54)
--- NOTE | 2017-04-27 14:59 | P.OP ---
Date of Procedure: 04/27/17 Preoperative Diagnosis: Cholecystitis Postoperative Diagnosis: Cholecystitis Procedure(s) Performed: Laparoscopic cholecystectomy Anesthesia: MARLEE Surgeon: Savage Castillo Estimated Blood Loss (ml): 10 Pathology: other (Gallbladder) Condition: stable Disposition: PACU Description of Procedure: The patient was placed on the operating table. The patient received a general endotracheal tube anesthesia. The patients abdomen was prepped and draped in the usual sterile fashion. Through an infraumbilical stab incision, the fascia of the anterior abdominal wall was grasped with a pair of Kochers and then the Veress needle was placed in the peritoneal cavity. Position of the Veress needle was confirmed with positive drop test. The abdomen was then insufflated. After adequate insufflation, the 10 mm trocar was placed in the peritoneal cavity. Following this the laparoscope was placed in the peritoneal cavity. The patient was placed in the head-up, right side up position and then a 5 mm trocar was placed in the right lateral and right subcostal position under direct visualization. A 8 mm trocar was placed in the epigastric position. The gallbladder was grasped in the fundus and infundibulum. Traction on the gallbladder was placed in the lateral and the cephalad positions. The triangle of Calot was visualized.. The cystic duct was bluntly dissected until the union of the cystic duct and common bile duct was seen. The cystic duct was then divided and sealed with the Harmonic scissors. A PDS Endoloop was then placed throughout the cystic duct stump. The cystic artery divided and sealed with the Harmonic scissors. The gallbladder was then removed from the liver bed using Harmonic scissors. The gallbladder was then extracted through the epigastric port site. Operative field was checked for any bleeding spots and Harmonic scissors was used to coagulate the liver bed. The abdomen was irrigated. The trocars were removed. The skin was closed using interrupted 3-0 Vicryl suture. Dermabond dressing were applied. The patient tolerated the procedure well.
[2017-04-27] MEDS ORDERED: MORPHINE SULFATE 4 MG/ML SYRINGE IVP ONE ×3 (15:30→16:00)
[2017-04-27] MEDS: PANTOPRAZOLE 40 MG/10 ML VIAL IVP SCH (17:05)
[2017-04-27 17:13] LABS: Glucose,Whole Blood 142 mg/dL (75-99)
[2017-04-27] MEDS: METOPROLOL TARTRATE 50 MG TAB PO SCH (21:14)
[2017-04-27] MEDS: ZOLPIDEM 10 MG TAB PO SCH (21:19)
[2017-04-28] MEDS: INSULIN ASPART 100 UNIT/ML 1 ML 10 ML VIAL SQ SCH ×4 (00:20→18:57)
[2017-04-28] MEDS: HEPARIN SODIUM,PORCINE 5,000 UNIT/ML 1 ML VIAL SQ SCH ×3 (00:20→16:50)
[2017-04-28 00:23] LABS: Glucose,Whole Blood 112 mg/dL (75-99)
[2017-04-28 06:36] LABS: Glucose,Whole Blood 81 mg/dL (75-99)
[2017-04-28] MEDS: HYDROmorphone 0.5 MG/0.5 ML SYRINGE IVP PRN ×2 (06:36→19:24)
[2017-04-28] MEDS: ONDANSETRON 4 MG/2 ML VIAL IVP PRN ×2 (06:37→15:10)
[2017-04-28 07:26] LABS: Basophils # (A) 0.1 k/uL (0-0.2); Basophils % (A) 1 %; CH 28.9; CHCM 31.8; Eosinophils # (A) 0.1 k/uL (0-0.7); Eosinophils % (A) 1 %; HCT 37.3 % (34.0-46.0); HDW 2.59; Luc # (Auto) 0.08; Luc % (Auto) 1; Lymphocytes # (A) 1.9 k/uL (1.0-4.8); Lymphocytes % (A) 23 %; MCH 29.4 pg (25.0-35.0); MCHC 32.2 g/dL (31.0-37.0); MCV 91.6 fL (80.0-100.0); Mean Platelet Volume 7.3; Monocytes # (A) 0.4 k/uL (0-1.0); Monocytes % (A) 6 %; Neutrophils # (A) 5.7 k/uL (1.3-7.7); Neutrophils % (A) 69 %; RBC 4.07 m/uL (3.80-5.40); RDW 14.8 % (11.5-15.5); WBC 8.2 k/uL (3.8-10.6); WBC (Perox) 8.72
[2017-04-28 08:04] LABS: ALT 66 U/L (9-52); AST 37 U/L (14-36); Alkaline Phosphatase 83 U/L (38-126); Anion Gap 9 mmol/L; Blood Urea Nitrogen 6 mg/dL (7-17); Calcium 8.4 mg/dL (8.4-10.2); Carbon Dioxide 19 mmol/L (22-30); Chloride 105 mmol/L (98-107); Glucose 80 mg/dL (74-99); Non-African American GFR(MDRD) >60 (>60 ml/min/1.73 sqM); Potassium 4.4 mmol/L (3.5-5.1); Sodium 133 mmol/L (137-145); Total Bilirubin 0.5 mg/dL (0.2-1.3); Total Protein 5.7 g/dL (6.3-8.2)
[2017-04-28] MEDS: SODIUM CHLORIDE 0.9% 1,000 ML IV SCH (08:14)
--- NOTE | 2017-04-28 08:54 | P.PN ---
Subjective Patient is status post cholecystectomy is still complaining of severe nausea. Patient is bit hyponatremic. Because of hyperchloremia will switch her IV fluids to lactated Ringer's. Constitutional: Denied any fatigue denied any fever. Cardio vascular: denied any chest pain, palpitations Gastrointestinal as mentioned in HPI Pulmonary: Denied any shortness of breath cough Neurologic denied any new focal deficits Objective - Vital Signs Vital signs: Vital Signs Temp 98.3 F 04/28/17 00:21 Pulse 62 04/28/17 07:50 Resp 20 04/28/17 07:50 BP 106/58 04/28/17 07:50 Pulse Ox 97 04/28/17 07:50 Intake & Output 04/27/17 04/28/17 04/28/17 18:59 06:59 18:59 Intake Total 1425 100 Output Total 1355 Balance 70 100 Intake: IV 1425 Oral 100 Output: Urine 1350 Estimated Blood Loss 5 Other: # Voids 1 1 - Exam GENERAL: The patient is alert and oriented x3, not in any acute distress. Well developed, well nourished. HEENT: Pupils are round and equally reacting to light. EOMI. No scleral icterus. No conjunctival pallor. Normocephalic, atraumatic. No pharyngeal erythema. No thyromegaly. CARDIOVASCULAR: S1 and S2 present. No murmurs, rubs, or gallops. PULMONARY: Chest is clear to auscultation, no wheezing or crackles. ABDOMEN: Soft, nontender, nondistended, normoactive bowel sounds. No palpable organomegaly. Surgical site areas appears to be clean MUSCULOSKELETAL: No joint swelling or deformity. EXTREMITIES: No cyanosis, clubbing, or pedal edema. NEUROLOGICAL: Gross neurological examination did not reveal any focal deficits. SKIN: No rashes. - Labs CBC & Chem 7: 04/28/17 06:24 04/28/17 06:24 Labs: Abnormal Lab Results - Last 24 Hours (Table) 04/27/17 04/27/17 04/28/17 Range/Units 12:33 16:54 00:19 Sodium (137-145) mmol/L Carbon Dioxide (22-30) mmol/L BUN (7-17) mg/dL POC Glucose (mg/dL) 113 H 142 H 112 H (75-99) mg/dL AST (14-36) U/L ALT (9-52) U/L Total Protein (6.3-8.2) g/dL Albumin (3.5-5.0) g/dL 04/28/17 Range/Units 06:24 Sodium 133 L (137-145) mmol/L Carbon Dioxide 19 L (22-30) mmol/L BUN 6 L (7-17) mg/dL POC Glucose (mg/dL) (75-99) mg/dL AST 37 H (14-36) U/L ALT 66 H (9-52) U/L Total Protein 5.7 L (6.3-8.2) g/dL Albumin 3.1 L (3.5-5.0) g/dL Microbiology - Last 24 Hours (Table) 04/26/17 18:19 Blood Culture - Preliminary Blood No Growth after 24 hours Assessment and Plan Plan: #1 cholecystitis: Status post cholecystectomy patient is on Zosyn pain management and DVT prophylaxis per primary service. #2 anxiety disorder 3 diabetes mellitus type II #4 hyperlipidemia #5 hypertension #6 Marfan syndrome #7 peripheral neuropathy #8 gastroesophageal reflux disease #9 mild hyponatremia: IV fluids will be switched to lactated Ringer's because of hyperchloremia. Hyperkalemia is contributing to her mild non-anion gap metabolic acidosis
[2017-04-28] MEDS: PANTOPRAZOLE 40 MG/10 ML VIAL IVP SCH (09:10)
[2017-04-28] MEDS: GABAPENTIN 300 MG CAP PO SCH ×3 (09:10→21:06)
[2017-04-28] MEDS ORDERED: oxyCODONE-APAP 10-325MG 1 EACH TAB PO PRN (11:28)
[2017-04-28 11:38] LABS: Glucose,Whole Blood 105 mg/dL (75-99)
--- NOTE | 2017-04-28 12:32 | P.PN ---
Subjective Progress Note Date: 04/28/17 Principal diagnosis: Cholecystitis Patient having some nausea this morning she felt like she was going to vomit after she had her clear liquids. She soaks Mensing some abdominal pain she states that the pain medication is somewhat helping. No other complaints Objective - Vital Signs Vital signs: Vital Signs Temp 97.1 F L 04/28/17 11:14 Pulse 64 04/28/17 11:14 Resp 20 04/28/17 11:14 BP 117/62 04/28/17 11:14 Pulse Ox 99 04/28/17 11:14 Intake & Output 04/27/17 04/28/17 04/28/17 18:59 06:59 18:59 Intake Total 1425 100 Output Total 1355 Balance 70 100 Intake: IV 1425 Oral 100 Output: Urine 1350 Estimated Blood Loss 5 Other: Voiding Method Toilet # Voids 1 1 - Constitutional General appearance: Present: average body habitus, cooperative - EENT Eyes: Present: PERRLA - Respiratory Details: Nonlabored - Cardiovascular Rhythm: regular - Gastrointestinal Gastrointestinal Comment(s): Soft nondistended mild tenderness palpation expected incisions clean dry and intact - Psychiatric Psychiatric: Present: A&O x's 3 - Labs CBC & Chem 7: 04/28/17 06:24 04/28/17 06:24 Labs: Abnormal Lab Results - Last 24 Hours (Table) 04/27/17 04/27/17 04/28/17 Range/Units 12:33 16:54 00:19 Sodium (137-145) mmol/L Carbon Dioxide (22-30) mmol/L BUN (7-17) mg/dL POC Glucose (mg/dL) 113 H 142 H 112 H (75-99) mg/dL AST (14-36) U/L ALT (9-52) U/L Total Protein (6.3-8.2) g/dL Albumin (3.5-5.0) g/dL 04/28/17 04/28/17 Range/Units 06:24 11:27 Sodium 133 L (137-145) mmol/L Carbon Dioxide 19 L (22-30) mmol/L BUN 6 L (7-17) mg/dL POC Glucose (mg/dL) 105 H (75-99) mg/dL AST 37 H (14-36) U/L ALT 66 H (9-52) U/L Total Protein 5.7 L (6.3-8.2) g/dL Albumin 3.1 L (3.5-5.0) g/dL Microbiology - Last 24 Hours (Table) 04/26/17 18:19 Blood Culture - Preliminary Blood No Growth after 24 hours Assessment and Plan Assessment: Postop day 1 Cholecystectomy secondary to cholecystitis Plan: Patient is having nausea with clear liquids I will not advance her diet at this time. If she begins to tolerate clear liquids will advance her diet regular when starting a regular diet she may be discharged home
[2017-04-28] MEDS: LACTATED RINGERS 1,000 ML IV SCH (16:54)
[2017-04-28 17:37] LABS: Glucose,Whole Blood 124 mg/dL (75-99)
[2017-04-28 19:02] LABS: Glucose,Whole Blood 142 mg/dL (75-99)
[2017-04-28] MEDS: METOPROLOL TARTRATE 50 MG TAB PO SCH (21:06)
[2017-04-28] MEDS: ZOLPIDEM 10 MG TAB PO SCH (21:06)
[2017-04-28 21:42] VITALS: PULSE 66; RESP 18
[2017-04-29] MEDS: INSULIN ASPART 100 UNIT/ML 1 ML 10 ML VIAL SQ SCH ×2 (00:11→06:27)
[2017-04-29 00:12] LABS: Glucose,Whole Blood 134 mg/dL (75-99)
[2017-04-29] MEDS: HEPARIN SODIUM,PORCINE 5,000 UNIT/ML 1 ML VIAL SQ SCH ×2 (00:12→08:45)
[2017-04-29] MEDS: ONDANSETRON 4 MG/2 ML VIAL IVP PRN (00:15)
[2017-04-29] MEDS: LACTATED RINGERS 1,000 ML IV SCH (02:00)
[2017-04-29 06:25] LABS: Glucose,Whole Blood 121 mg/dL (75-99)
[2017-04-29] MEDS: PANTOPRAZOLE 40 MG/10 ML VIAL IVP SCH (08:44)
[2017-04-29] MEDS: GABAPENTIN 300 MG CAP PO SCH (08:45)
[2017-04-29 09:15] VITALS: BP 113/53; TEMP 97
== END 2017-04-29 10:54 | disposition home or self-care (01) | DRG 263 ==
LOC: EC 16:39 → OBSVTOIN 18:33 → 6PED 18:33
PROVIDERS: ADMIT Surgery; ATTEND Surgery
PROC: 0FT44ZZ Resection of Gallbladder, Percutaneous Endoscopic Approach (ICD-10-PCS; principal; 2017-04-26)
DX: K80.00 Calculus of gallbladder with acute cholecystitis without obstruction (principal); E87.2 Acidosis; Q87.40 Marfan syndrome, unspecified; E11.42 Type 2 diabetes mellitus with diabetic polyneuropathy; E87.1 Hypo-osmolality and hyponatremia; E11.9 Type 2 diabetes mellitus without complications; F41.9 Anxiety disorder, unspecified; E78.5 Hyperlipidemia, unspecified; K21.9 Gastro-esophageal reflux disease without esophagitis; E87.5 Hyperkalemia; R11.0 Nausea; E87.8 Other disorders of electrolyte and fluid balance, not elsewhere classified; Z90.710 Acquired absence of both cervix and uterus; Z81.8 Family history of other mental and behavioral disorders; Z79.899 Other long term (current) drug therapy; Z79.84 Long term (current) use of oral hypoglycemic drugs; Z79.891 Long term (current) use of opiate analgesic; Z88.6 Allergy status to analgesic agent; Z88.8 Allergy status to other drugs, medicaments and biological substances
CPT/HCPCS: 36415; 80053; 81003; 81025; 82150; 83036; 83605; 83690; 85025; 85610; 85730; 86850; 86900; 86901; 87040; 88304; 96365; 96366; 96375; 99285

== ENCOUNTER → 2017-04-26 | Outpatient (CLI) | payer OTHER ==
--- NOTE | 2017-04-26 16:11 | NM ---
EXAMINATION TYPE: NM hepatobiliary wo EF DATE OF EXAM: 04/26/2017 COMPARISON: NONE HISTORY: Nonvisualization of the gallbladder ultrasound of 04/18/2017 with persistent abdominal pain. TECHNIQUE: After the intravenous administration of 4.5 mCi Tc 99m Mebrofenin hepatobiliary scintigrap hy is performed. Immediate images post injection. FINDINGS: There is nonvisualization of the gallbladder at 2.5 hours with near complete excretion of radiotracer from the liver. Findings are compatible with acute cholecystitis. Therefore CCK was not given. Small bowel is visualized at 10 minutes indicative of normal biliary to bowel transit time. IMPRESSION: Findings compatible with acute cholecystitis. Findings communicated with the operator receptionist Milli and message left for the medical radiation therapist additionally at 1408 p.m. on 04/26/[address] Mims .
== END | disposition home or self-care (01) ==
LOC: RADNMMAIN 09:00
PROVIDERS: ATTEND Internal Medicine
DX: R10.11 Right upper quadrant pain (principal); Z88.5 Allergy status to narcotic agent; Z88.6 Allergy status to analgesic agent; Z88.8 Allergy status to other drugs, medicaments and biological substances
CPT/HCPCS: 78226; A9537

== ENCOUNTER → 2017-08-30 | Outpatient (CLI) | payer OTHER ==
--- NOTE | 2017-08-30 09:19 | CT ---
EXAMINATION TYPE: CT lumbar spine wo con DATE OF EXAM: 08/30/2017 8:58 AM COMPARISON: NONE HISTORY: Patient complains of low back pain with radiation bilaterally to the hips. CT DLP: 1043.5 mGycm Automated exposure control for dose reduction was used. Unenhanced CT of the lumbar spine was performed. Bone and soft tissue window settings are submitted as well as coronal and sagittal reconstructions. FINDINGS: Vertebral bodies maintain normal vertebral body heights and alignment. A Schmorl's node is noted at the inferior endplate of T11. Degenerative disc disease is seen at this level. Nonobstructin g 2 mm left lower pole renal calculus is incidentally identified. 2 small to accurately characterize right upper pole exophytic 6 mm probable renal cyst is seen. Mild calcifications of the abdominal aor ta and its branches are noted. 2.8 cm cystic area within the region of the left adnexa likely represe nts a dominant follicle or ovarian cyst but is incompletely evaluated. Few sigmoid diverticula are in cidentally noted. Osseous structures are intact with no acute fracture or malalignment. MRI is better suited for evaluation of disc herniation. Probable bone islands are noted within the S1 vertebral jaclyn dy. L1-L2: Normal disc space height. No disc herniation protrusion or central stenosis. No facet joint arthropathy. No evidence for foraminal encroachment. L2-L3: Normal disc space height. No disc herniation protrusion or central stenosis. No facet joint arthropathy. No evidence for foraminal encroachment. L3-L4: Normal disc space height. No disc herniation protrusion or central stenosis. No facet joint arthropathy. No evidence for foraminal encroachment. L4-L5: There is a small broad-based disc bulge and facet arthropathy resulting in mild bilateral neur al foraminal narrowing. No significant spinal canal stenosis. L5-S1: There is a small broad-based disc bulge without significant neural foraminal narrowing or spin al canal stenosis. IMPRESSION: 1. Degenerative disc disease at L4-L5, L5-S1 and partially visualized at T11-T12. Evaluation for disc herniation on CT is limited. Resultant bilateral neural foraminal narrowing is seen at L5. More accu rate degree of stenosis could be performed with MRI of the lumbar spine. 2. Partial visualization of a cystic structure within the left adnexa that could relate to an ovarian cyst/dominant follicle. Pelvic ultrasound could be performed for further delineation. 3. Incidentally noted nonobstructing 2 mm left lower pole renal calculus.
== END | disposition home or self-care (01) ==
LOC: RADCTMAIN 08:36
PROVIDERS: ATTEND Psychiatry & Neurology Neurology
DX: M99.73 Connective tissue and disc stenosis of intervertebral foramina of lumbar region (principal); M51.34 Other intervertebral disc degeneration, thoracic region; M51.37 Other intervertebral disc degeneration, lumbosacral region; Z88.6 Allergy status to analgesic agent; Z88.8 Allergy status to other drugs, medicaments and biological substances
CPT/HCPCS: 72131

== ENCOUNTER → 2017-08-31 | Outpatient (CLI) | payer OTHER ==
--- NOTE | 2017-09-01 08:01 | ECHOF ---
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 This was a technically good study. The left ventricular size is normal. There is borderline concentric left ventricular hypertrophy. Overall left ventricular systolic function is normal with, an EF between 55 - 60 %. The right ventricle is normal in size and function. LA is moderately dilated 34-39 ml/m2 RA appears enlarged. The aortic valve is trileaflet, and appears structurally normal. No aortic stenosis or regurgitation. [id number] mitral regurgitation is present , predominately a centrally directed jet. Some redun jamin of both leaflets without clearcut prolapse. Mild tricuspid regurgitation present. The right ventricular systolic pressure, as measured by Doppl er, is 25.18mmHg. Pulmonic valve appears structurally normal. The aortic root size is normal. Normal inferior vena cava with normal inspiratory collapse consistent with estimated right atrial pre ssure of 5 mmHg. The pericardium is normal. CONCLUSIONS -------- 1. Sinus rhythm. 2. This was a technically good study. 3. The left ventricular size is normal. 4. There is borderline concentric left ventricular hypertrophy. 5. Overall left ventricular systolic function is normal with, an EF between 55 - 60 %. 6. The right ventricle is normal in size and function. 7. LA is moderately dilated 34-39 ml/m2 8. RA appears enlarged. 9. The aortic valve is trileaflet, and appears structurally normal. No aortic stenosis or regurgitati on. 10. [id number] mitral regurgitation is present. 11. , predominately a centrally directed jet. 12. Mild tricuspid regurgitation present. 13. The right ventricular systolic pressure, as measured by Doppler, is 25.18mmHg. 14. Pulmonic valve appears structurally normal. 15. The aortic root size is normal. 16. Normal inferior vena cava with normal inspiratory collapse consistent with estimated right atrial pressure of 5 mmHg. 17. The pericardium is normal. WASHCLOTH FOLDER: Swetha Montanez RDCS
== END | disposition home or self-care (01) ==
LOC: RADECHMAIN 11:29
PROVIDERS: ATTEND Thoracic Surgery (Cardiothoracic Vascular Surgery)
DX: I07.1 Rheumatic tricuspid insufficiency (principal); Q87.40 Marfan syndrome, unspecified
CPT/HCPCS: 93306

== ENCOUNTER → 2017-12-24 | Outpatient (CLI) | payer BC ==
--- NOTE | 2017-12-24 14:08 | US ---
EXAMINATION TYPE: US MSK right ankle, peroneal tendons DATE OF EXAM: 12/24/2017 COMPARISON: NONE CLINICAL HISTORY: 37-year-old female M66.371 Rt peroneal Tendon Tear. Patient with lateral foot pain for 4 months. Remote history of fracture as a child which healed without complication. Patient with m ore recent development of a lump/swelling at the base of the fifth metatarsal with pain. Wearing a jaclyn ot without improvement. Technique: Multiple sonographic images of the lateral right ankle and hindfoot were obtained. FINDINGS: There is mild heterogeneity of the peroneal tendons in the supramalleolar region with some images sug gesting a short segment split or interstitial tear. There is mild tenosynovial fluid at the level of the malleolus. . The peroneus brevis tendon thins distally at the insertion and there is a partial te ar here with some interposed and adjacent fluid. No reyna retracted tear. IMPRESSION: 1. Findings suggest a partial insertional tear of the peroneus brevis at the fifth metatarsal base. T here is some interposed and adjacent fluid in this region. No retracted tear is identified. 2. Mild tenosynovial fluid at the malleolus and small interstitial or split tear along the supramalle olar segment.
== END | disposition home or self-care (01) ==
LOC: RADUSWWP 10:14
PROVIDERS: ATTEND Podiatrist Foot & Ankle Surgery
DX: M25.9 Joint disorder, unspecified (principal); M66.371 Spontaneous rupture of flexor tendons, right ankle and foot

== ENCOUNTER → 2018-03-12 | Outpatient (CLI) | payer BC ==
--- NOTE | 2018-03-14 11:13 | US ---
EXAMINATION TYPE: US MSK Right Ankle, peroneal tendons DATE OF EXAM: 03/12/2018 COMPARISON: 12/24/2017 CLINICAL HISTORY: 37-year-old female Rt Peroneal Tendon Tear [id number]. Additional history provided by the automobile service advisor: Patient with surgical repair of two partial tears on 01/15/2018, one in each tendon, stitched repair, plus nerve repair per patient. Patient in cast 6 wks p ost op; out of cast about 10 days ago, fell three times since with increased pain, swelling and non-w t bearing. Technique: Multiple sonographic images of the lateral right ankle and hindfoot for assessment of the peroneal tendons. FINDINGS: Along the high supramalleolar level, both peroneal tendons are visualized. As scanning proceeds infer iorly closer to the malleolus, there is suggestion of some overlying scarring and only one tendon is clearly identified. This tendon demonstrates multiple interstitial and split tears. The appearance of multiple interstitial/split tears continuous to the malleolar level where there is mild tenosynovitis. Along the inframalleolar portion, there is extensive overlying scarring with the peroneus longus divi ng down along the plantar aspect. Along the posterior inframalleolar region, the peroneus brevis is not discretely identified. Attempts are made to identify the peroneus brevis by visualizing it at the base of the fifth metatarsal. Ther e is fluid adjacent to the insertion with intact insertional fibers demonstrated. Approximately 3 cm proximal to its insertion, the tendon becomes markedly heterogeneous with punctate echoes within that could represent suture material. Extensive heterogeneity of the tendon is noted in this location ext ending for 3.5 cm to the malleolar level. IMPRESSION: 1. Moderate fluid adjacent to the insertion of the peroneus brevis suggesting tenosynovitis. Intact i nsertional fibers are demonstrated. 2. Marked heterogeneity of the peroneus brevis 3 cm proximal to its insertion for a span of 3.5 cm wi th overlying scar and punctate echoes that could represent suture material. The extensive heterogenei ty could represent post surgical change or extensive partial re-tear. No frankly retracted, balled up stump is identified. 3. At and just above the malleolar level, only one peroneal tendon can be identified and this contain s multiple interstitial and split tears. Inadequate visualization of the other tendon could be due t o tear or post surgical change.
== END | disposition home or self-care (01) ==
LOC: RADUSMAIN 10:25
PROVIDERS: ATTEND Podiatrist Foot & Ankle Surgery
DX: S86.311A Strain of muscle(s) and tendon(s) of peroneal muscle group at lower leg level, right leg, initial encounter (principal)

== ENCOUNTER → 2018-03-19 | Outpatient (CLI) | payer BC ==
[2018-03-19 10:45] LABS: Blood Urea Nitrogen 15 mg/dL (7-17)
--- NOTE | 2018-03-19 11:33 | CT ---
EXAMINATION TYPE: CT angio chest DATE OF EXAM: 03/19/2018 11:22 AM COMPARISON: 09/20/2017 HISTORY: thoracic aortic aneurysm w/o rupture CT DLP: 256.6 mGycm Automated exposure control for dose reduction was used. CONTRAST: CTA scan of the thorax is performed with IV Contrast, patient injected with 100 mL of Isovue 370, pul monary embolism protocol. . FINDINGS: LUNGS: There is a nodule within the superior segment right upper lobe measuring 5 mm stable. No consolidation, pleural effusion or pneumothorax. MEDIASTINUM: Assessment of the aortic root is limited due to motion artifacts. It is estimated to maria luz sure 4.0 by 4.0 cm. Mid ascending aorta normal caliber at 2.9 cm. Proximal aortic arch normal caliber 2.9 cm. Some tortuosity along the arch vessels makes it difficult to determine if there is bovine co nfiguration. Upper descending thoracic aorta measures 2.3 cm, within normal limits. Lower descending thoracic aorta measures 2.3 cm, within normal limits. OTHER: Spinal stimulator array along the mid to lower thoracic spinal canal. There is a hypervascula r lesion involving the dome of the liver measuring 2.4 cm. This may represent a flash hemangioma. The re is a blood vessel which extends directly into the lesion. Recommend ultrasound to exclude a vascul ar anomaly. IMPRESSION: 1. Stable aneurysmal dilation the aortic root measuring 4 x 4 cm. 2. 2.4 cm enhancing lesion on arterial phase within the dome of the liver. There is a blood vessel wh ich leads directly into the lesion. Flash hemangioma in the differential. Dedicated CTA or ultrasound of the abdomen recommended to exclude a vascular anomaly. 3. Stable superior segment right lower lobe pulmonary nodule measuring 5 mm.
== END | disposition home or self-care (01) ==
LOC: RADCTMAIN 10:12
PROVIDERS: ATTEND Thoracic Surgery (Cardiothoracic Vascular Surgery)
DX: I71.2 Thoracic aortic aneurysm, without rupture (principal); R91.1 Solitary pulmonary nodule; Q87.40 Marfan syndrome, unspecified; Z88.5 Allergy status to narcotic agent; Z88.6 Allergy status to analgesic agent; Z88.8 Allergy status to other drugs, medicaments and biological substances
CPT/HCPCS: 82565; 84520; 71275; 36415; Q9967

== ENCOUNTER → 2018-07-05 | Outpatient (CLI) | payer BC ==
--- NOTE | 2018-07-05 11:12 | US ---
EXAMINATION TYPE: US venous doppler duplex LE RT DATE OF EXAM: 07/05/2018 11:03 AM COMPARISON: NONE CLINICAL HISTORY: I82.409 Deep Vein Thrombosis. Right calf and knee pain x couple weeks SIDE PERFORMED: Right TECHNIQUE: The lower extremity deep venous system is examined utilizing real time linear array sonog amberly with graded compression, doppler sonography and color-flow sonography. VESSELS IMAGED: External Iliac Vein (EIV) Common Femoral Vein Deep Femoral Vein Greater Saphenous Vein * Femoral Vein Popliteal Vein Small Saphenous Vein * Proximal Calf Veins (* superficial vessels) Right Leg: Appears negative for DVT IMPRESSION: No evidence for DVT at this time.
== END ==
LOC: RADUSWWP 10:45
PROVIDERS: ATTEND Podiatrist Foot & Ankle Surgery
DX: I82.401 Acute embolism and thrombosis of unspecified deep veins of right lower extremity (principal)

== ENCOUNTER 2018-08-27 08:53 | Emergency (ER) | payer BC, OTHER ==
[2018-08-27 08:57] VITALS: RESP 18
[2018-08-27] MEDS ORDERED: HYDROmorphone 1 MG/ML 1 ML SYRINGE IVP STA (09:10)
[2018-08-27] MEDS ORDERED: SODIUM CHLORIDE 0.9% 1,000 ML IV STA (09:10)
[2018-08-27] MEDS ORDERED: ONDANSETRON 4 MG/2 ML VIAL IVP STA (09:10)
--- NOTE | 2018-08-27 09:16 | ED ---
General Adult HPI - General Chief complaint: Abdominal Pain Stated complaint: abdominal & back pain Time Seen by Provider: 08/27/18 09:04 Source: patient, RN notes reviewed Mode of arrival: ambulatory Limitations: no limitations - History of Present Illness Initial comments: Patient 37-year-old female presented to the emergency room today with a chief c omplaint of left flank pain that started proxy 4 AM. Patient states she woke up with sharp pain located in the left flank with some radiation around to the front of the lower abdomen. Patient does admit that she has a pain pump of Dilaudid for chronic pain. She states she still experiencing increased pain with this. She states this is different from her typical back pain that she's had in the past. Patient doesn't feeling nauseated. She denies any other complaints or symptoms. Patient denies any recent fever, chills, shortness of breath, chest pain, vomiting, numbness or tingling, dysuria or hematuria, constipation or diarrhea, headaches or visual changes, or any other complaints. - Related Data Home Medications Medication Instructions Recorded Confirmed Cetirizine HCl [Zyrtec] 10 mg PO HS 04/10/17 08/27/18 Furosemide [Lasix] 40 mg PO DAILY 04/10/17 08/27/18 Metoprolol Tartrate [Lopressor] 50 mg PO HS 04/10/17 08/27/18 Multivitamins, Thera [Multivitamin 1 tab PO DAILY 04/10/17 08/27/18 (formulary)] Omeprazole [PriLOSEC] 80 mg PO HS 04/10/17 08/27/18 Ranitidine HCl 150 mg PO BID 04/10/17 08/27/18 metFORMIN HCL 1,000 mg PO BID 04/10/17 08/27/18 oxyCODONE HCL/ACETAMINOPHEN 1 tab PO BID PRN 04/10/17 08/27/18 [Percocet 10-325 mg] Dilaudid Pain Pump 1 dose INTRATHECA DIRECTED 08/27/18 08/27/18 Liraglutide [Victoza 3-[place]] 1.8 mg SQ HS 08/27/18 08/27/18 Lisinopril [Prinivil] 5 mg PO HS 08/27/18 08/27/18 Meloxicam 15 mg PO HS 08/27/18 08/27/18 Ondansetron HCl [Zofran] 8 mg PO TID PRN 08/27/18 08/27/18 sitaGLIPtin PHOSPHATE [Januvia] 100 mg PO HS 08/27/18 08/27/18 Previous Rx's Medication Instructions Recorded Ibuprofen [Motrin] 800 mg PO Q6HR #30 tab 08/27/18 Ondansetron Odt [Zofran ODT] 4 mg PO Q8HR PRN #20 tab 08/27/18 Tamsulosin [Flomax] 0.4 mg PO DAILY #10 cap 08/27/18 Allergies Allergy/AdvReac Type Severity Reaction Status Date / Time hydrocodone [From [place]] Allergy Severe Itching Verified 08/27/18 11:15 tramadol [From Ultram] Allergy Severe Itching Verified 08/27/18 11:15 pregabalin [From Lyrica] AdvReac Tingling Verified 08/27/18 11:15 in feet, bed wetting topiramate [From Topamax] AdvReac increases Verified 08/27/18 11:15 blood pressure Review of Systems ROS Statement: Those systems with pertinent positive or pertinent negative responses have been documented in the HPI. ROS Other: All systems not noted in ROS Statement are negative. Past Medical History Past Medical History: No Reported History, Diabetes Mellitus, Hyperlipidemia, Hypertension Additional Past Medical History / Comment(s): marfans syndrome, po and insulin for DM, borderline high cholestrol no meds just diet, IBS no tx at this time, right foot neuropathy History of Any Multi-Drug Resistant Organisms: None Reported Past Surgical History: Hysterectomy Additional Past Surgical History / Comment(s): spinal cord stimulator in upper back - can not have MRI's , partial hyst Past Anesthesia/Blood Transfusion Reactions: No Reported Reaction Past Psychological History: No Psychological Hx Reported Smoking Status: Never smoker Past Alcohol Use History: None Reported Past Drug Use History: None Reported - Past Family History Father Additional Family Medical History / Comment(s): Marfans passed at age 34 Mother Additional Family Medical History / Comment(s): suicide 2 yrs ago - bipolar General Exam - General Exam Comments Initial Comments: General: The patient is awake and alert, moderate distress. Eye: There is normal conjunctiva bilaterally. No signs of icterus. Ears, nose, mouth and throat: There are moist mucous membranes and no oral lesions. Neck: The neck is supple, there is no tenderness or JVD. Cardiovascular: There is a regular rate and rhythm. No murmur, rub or gallop is appreciated. Respiratory: Lungs are clear to auscultation, respirations are non-labored, breath sounds are equal. No wheezes, stridor, rales, or rhonchi. Gastrointestinal: Abdomen soft on palpation. Nontender. No rebound, guarding or CVA tenderness. Musculoskeletal: Normal ROM, no tenderness. Neurological: A&O x 3. CN II-XII intact, There are no obvious motor or sensory deficits. Coordination appears grossly intact. Speech is normal. Skin: Skin is warm and dry and no rashes or lesions are noted. Psychiatric: Cooperative, appropriate mood & affect, normal judgment. Limitations: no limitations Course Vital Signs 08/27/18 08/27/18 08:54 12:07 Temperature 97.5 F L 98 F Pulse Rate 89 82 Respiratory 18 18 Rate Blood Pressure 166/94 126/76 O2 Sat by Pulse 98 97 Oximetry EKG Findings - EKG Comments: EKG Findings:: EKG performed at 921: Shows normal sinus rhythm at 75 bpm. SD interval 98. QRS 78. QT/QTC 410/457. No acute ST changes. Medical Decision Making - Medical Decision Making Patient reexamined at this time stating that she is feeling better. She was given pain medication of IV Dilaudid along with Toradol. She states for all did seem to help better. Patient's blood work has been reviewed. There was a small amount of blood in her urine sample no sign of infection. Patient's CT the abdomen and pelvis did reveal a possible kidney stone in the left proximal ureter measuring approximately 3 cm. Results were discussed with the patient. At this time she is doing well. She'll be treated for possible kidney stone advised following up with urology. Will be started on Flomax, nausea medi cation, ibuprofen. She does have pain pump for Dilaudid that she uses for chronic back pain. Patient is advised return to emergency room if any symptoms increase worsen or for any other concerns. - Lab Data Result diagrams: 08/27/18 09:26 08/27/18 09:26 Lab Results 08/27/18 08/27/18 08/27/18 Range/Units 09:26 09: 09:26 WBC 12.1 H (3.8-10.6) k/uL RBC 4.75 (3.80-5.40) m/uL Hgb 13.8 (11.4-16.0) gm/dL Hct 42.6 (34.0-46.0) % MCV 89.7 (80.0-100.0) fL MCH 29.0 (25.0-35.0) pg MCHC 32.3 (31.0-37.0) g/dL RDW 13.1 (11.5-15.5) % Plt Count 377 (150-450) k/uL Neutrophils % 79 % Lymphocytes % 14 % Monocytes % 4 % Eosinophils % 2 % Basophils % 0 % Neutrophils # 9.5 H (1.3-7.7) k/uL Lymphocytes # 1.7 (1.0-4.8) k/uL Monocytes # 0.5 (0-1.0) k/uL Eosinophils # 0.2 (0-0.7) k/uL Basophils # 0.0 (0-0.2) k/uL Sodium 138 (137-145) mmol/L Potassium 4.5 (3.5-5.1) mmol/L Chloride 102 (98-107) mmol/L Carbon Dioxide 26 (22-30) mmol/L Anion Gap 10 mmol/L BUN 9 (7-17) mg/dL Creatinine 0.59 (0.52-1.04) mg/dL Est GFR (CKD-EPI)AfAm >90 (>60 ml/min/1.73 sqM) Est GFR (CKD-EPI)NonAf >90 (>60 ml/min/1.73 sqM) Glucose 217 H (74-99) mg/dL Calcium 9.4 (8.4-10.2) mg/dL Total Bilirubin 0.6 (0.2-1.3) mg/dL AST 24 (14-36) U/L ALT 44 (9-52) U/L Alkaline Phosphatase 109 (38-126) U/L Total Protein 6.9 (6.3-8.2) g/dL Albumin 3.9 (3.5-5.0) g/dL Amylase 38 (30-110) U/L Lipase 74 (23-300) U/L Urine Color Urine Appearance (Clear) Urine pH (5.0-8.0) Ur Specific [place] (1.001-1.035) Urine Protein (Negative) Urine Glucose (UA) (Negative) Urine Ketones (Negative) Urine Blood (Negative) Urine Nitrite (Negative) Urine Bilirubin (Negative) Urine Urobilinogen (<2.0) mg/dL Ur Leukocyte Esterase (Negative) Urine RBC (0-5) /hpf Urine WBC (0-5) /hpf Ur Squamous Epith Cells (0-4) /hpf Urine HCG, Qual Not Detected (Not Detectd) 08/27/18 Range/Units 09:26 WBC (3.8-10.6) k/uL RBC (3.80-5.40) m/uL Hgb (11.4-16.0) gm/dL Hct (34.0-46.0) % MCV (80.0-100.0) fL MCH (25.0-35.0) pg MCHC (31.0-37.0) g/dL RDW (11.5-15.5) % Plt Count (150-450) k/uL Neutrophils % % Lymphocytes % % Monocytes % % Eosinophils % % Basophils % % Neutrophils # (1.3-7.7) k/uL Lymphocytes # (1.0-4.8) k/uL Monocytes # (0-1.0) k/uL Eosinophils # (0-0.7) k/uL Basophils # (0-0.2) k/uL Sodium (137-145) mmol/L Potassium (3.5-5.1) mmol/L Chloride (98-107) mmol/L Carbon Dioxide (22-30) mmol/L Anion Gap mmol/L BUN (7-17) mg/dL Creatinine (0.52-1.04) mg/dL Est GFR (CKD-EPI)AfAm (>60 ml/min/1.73 sqM) Est GFR (CKD-EPI)NonAf (>60 ml/min/1.73 sqM) Glucose (74-99) mg/dL Calcium (8.4-10.2) mg/dL Total Bilirubin (0.2-1.3) mg/dL AST (14-36) U/L ALT (9-52) U/L Alkaline Phosphatase (38-126) U/L Total Protein (6.3-8.2) g/dL Albumin (3.5-5.0) g/dL Amylase (30-110) U/L Lipase (23-300) U/L Urine Color Light Yellow Urine Appearance Clear (Clear) Urine pH 7.0 (5.0-8.0) Ur Specific [place] 1.011 (1.001-1.035) Urine Protein Negative (Negative) Urine Glucose (UA) 2+ H (Negative) Urine Ketones Negative (Negative) Urine Blood Small H (Negative) Urine Nitrite Negative (Negative) Urine Bilirubin Negative (Negative) Urine Urobilinogen <2.0 (<2.0) mg/dL Ur Leukocyte Esterase Negative (Negative) Urine RBC 7 H (0-5) /hpf Urine WBC 1 (0-5) /hpf Ur Squamous Epith Cells <1 (0-4) /hpf Urine HCG, Qual (Not Detectd) Disposition Clinical Impression: Kidney stone Disposition: HOME SELF-CARE Condition: Good Instructions (If sedation given, give patient instructions): Kidney Stones (ED) Additional Instructions: Please use medication as discussed. Please follow-up with urology/family doctor in the next 2 days of symptoms have not improved. Please return to emergency room if the symptoms increase or worsen or for any other concerns. Prescriptions: Tamsulosin [Flomax] 0.4 mg PO DAILY #10 cap Ibuprofen [Motrin] 800 mg PO Q6HR #30 tab Ondansetron Odt [Zofran ODT] 4 mg PO Q8HR PRN #20 tab PRN Reason: Nausea Is patient prescribed a controlled substance at d/c from ED?: No Referrals: None,Stated [Primary Care Provider] - 1-2 days Gigi Rawls MD [STAFF PHYSICIAN] - 1-2 days Time of Disposition: 12:26
[2018-08-27 09:49] LABS: Basophils % (A) 0 %; Eosinophils # (A) 0.2 k/uL (0-0.7); Eosinophils % (A) 2 %; HCT 42.6 % (34.0-46.0); HGB 13.8 gm/dL (11.4-16.0); Lymphocytes # (A) 1.7 k/uL (1.0-4.8); Lymphocytes % (A) 14 %; MCHC 32.3 g/dL (31.0-37.0); MCV 89.7 fL (80.0-100.0); Mean Platelet Volume 6.6; Monocytes # (A) 0.5 k/uL (0-1.0); Monocytes % (A) 4 %; Neutrophils # (A) 9.5 k/uL (1.3-7.7); Neutrophils % (A) 79 %; Platelet Count 377 k/uL (150-450); RBC 4.75 m/uL (3.80-5.40); RDW 13.1 % (11.5-15.5); WBC 12.1 k/uL (3.8-10.6)
[2018-08-27 10:00] LABS: ALT 44 U/L (9-52); AST 24 U/L (14-36); Albumin 3.9 g/dL (3.5-5.0); Alkaline Phosphatase 109 U/L (38-126); Amylase 38 U/L (30-110); Anion Gap 10 mmol/L; Blood Urea Nitrogen 9 mg/dL (7-17); Calcium 9.4 mg/dL (8.4-10.2); Carbon Dioxide 26 mmol/L (22-30); Chloride 102 mmol/L (98-107); Glucose 217 mg/dL (74-99); Lipase 74 U/L (23-300); Potassium 4.5 mmol/L (3.5-5.1); Sodium 138 mmol/L (137-145); Total Bilirubin 0.6 mg/dL (0.2-1.3); Total Protein 6.9 g/dL (6.3-8.2)
--- NOTE | 2018-08-27 10:00 | XR ---
EXAMINATION TYPE: XR KUB DATE OF EXAM: 08/27/2018 9:54 AM CLINICAL HISTORY: Left flank pain TECHNIQUE: Single upright image of the abdomen is obtained. COMPARISON: 04/18/2017 and 08/30/2017. FINDINGS: Thoracic spinal cord and nerve stimulator/painful lump and battery pack are noted in the pe lvis. Scattered gas is seen in non-distended small bowel loops. Gas and fecal material is seen in non -distended colon. There is no visceromegaly, pneumoperitoneum, or abnormal calcification appreciated. The patient's known 2 mm left-sided renal calculus is not appreciated. The lung bases are clear and the osseous structures are intact. There is a very mild dextroscoliosis of the spine and mild multile jeff degenerative changes of the thoracolumbar spine and femoral acetabular joints. IMPRESSION: Nonobstructive bowel gas pattern. The patient's known 2 mm left renal calculus is not jack reciated radiographically.
[2018-08-27 10:18] LABS: Appearance,Urine Clear (Clear); Bilirubin,Urine Negative (Negative); Blood,Urine Small (Negative); Color,Urine Light Yellow; Glucose,Urine (UA) 2+ (Negative); Ketones,Urine Negative (Negative); Leukocyte Esterase,Urine Negative (Negative); Nitrite,Urine Negative (Negative); Protein,Urine Negative (Negative); RBC,Urine 7 /hpf (0-5); Specific Gravity,Urine 1.011 (1.001-1.035); Squamous Epithelial Cell,Urine <1 /hpf (0-4); Urobilinogen,Urine <2.0 mg/dL (<2.0)
--- NOTE | 2018-08-27 11:28 | CT ---
EXAMINATION TYPE: CT abdomen pelvis wo con DATE OF EXAM: 08/27/2018 COMPARISON: None HISTORY: 37-year-old female Lt flank pain CT DLP: 702.9 mGycm. Automated exposure control for dose reduction was used. TECHNIQUE: Contiguous axial scanning of the abdomen and pelvis without IV contrast. Coronal and sagit mani reconstructions performed. FINDINGS: Large left anterior subcutaneous generator device and a smaller generator device posterior lower righ t back. Metal artifact from these instruments. Spinal stimulator raises ascending within the spinal c anal. Heart normal size without pericardial effusion. Lung bases clear without pleural effusion. Nonspecific 7 mm nodule in the subcutaneous adipose of the anterior lower left chest wall. Noncontrast appearance of the liver, adrenal glands, right kidney, spleen, and pancreas show no gross abnormality. No renal calculi on either side. No hydronephrosis on either side. 3 mm calcification along the course of the upper third left ureter is difficult for a phlebolith or ureteral calculus. No dilated small bowel, free fluid, or free air. No mesenteric or retroperitoneal lymphadenopathy. Moderate stool in the right side of the colon. Normal appendix. Mild diverticular change proximal sig moid colon. Bladder urine distended. Uterus and ovaries are visualized. Pelvic phleboliths. No abnormal fluid col lection the pelvis or pelvic lymphadenopathy. Bones: Mild degenerative changes at the hips. Degenerative disc disease lower thoracic spine and face t arthropathy within the lumbar spine. Accentuated lower thoracic kyphosis. IMPRESSION: 1. A 3 mm calcification along the course of the upper third left ureter equivocal between a phleboli th versus a small ureteral calculus. Clinically correlate. No hydronephrosis seen. 2. Moderate stool in the right side of the colon and proximal sigmoid diverticulosis.
[2018-08-27] MEDS ORDERED: KETOROLAC 30 MG/ML 1 ML VIAL IVP STA (11:39)
[2018-08-27 12:08] VITALS: BP 126/76; PULSE 82; TEMP 98
== END 2018-08-27 12:54 | disposition home or self-care (01) ==
LOC: EC 08:53
DX: N20.0 Calculus of kidney (principal); E78.5 Hyperlipidemia, unspecified; I10 Essential (primary) hypertension; E11.40 Type 2 diabetes mellitus with diabetic neuropathy, unspecified; Z79.84 Long term (current) use of oral hypoglycemic drugs; Z79.899 Other long term (current) drug therapy; Z79.1 Long term (current) use of non-steroidal anti-inflammatories (NSAID); Z88.5 Allergy status to narcotic agent; Z88.8 Allergy status to other drugs, medicaments and biological substances
CPT/HCPCS: 36415; 93005; 80053; 82150; 83690; 85025; 81001; 81025; 74018; 74176; 99285; 96374; 96375 ×2; 96361; J2405; J1885; J1170

== ENCOUNTER 2018-09-02 14:43 | Emergency (ER) | payer OTHER ==
[2018-09-02 15:24] VITALS: RESP 18; TEMP 98.7
[2018-09-02] MEDS ORDERED: HYDROmorphone 1 MG/ML 1 ML SYRINGE IM STA (17:09)
[2018-09-02] MEDS ORDERED: IBUPROFEN 800 MG TAB PO STA (17:09)
[2018-09-02] MEDS ORDERED: ACET/COD 300 MG/30 MG STARTER PACK 6 TAB BTL PO STA (17:09)
[2018-09-02] MEDS ORDERED: ONDANSETRON ODT 4 MG TAB PO STA (17:10)
[2018-09-02] MEDS ORDERED: ONDANSETRON 4 MG ODT STARTER PACK 2 TAB BTL PO STA (17:10)
--- NOTE | 2018-09-02 17:10 | ED ---
Abdominal Pain HPI - General Chief Complaint: Abdominal Pain Stated Complaint: kidney stones Time Seen by Provider: 09/02/18 16:50 Source: patient, RN notes reviewed, old records reviewed Mode of arrival: ambulatory Limitations: no limitations - History of Present Illness Initial Comments: This is a 37-year-old female the ER for evaluation. Patient does say for evaluation of bowel pain with no left-sided kidney stone. patient has no prior history until recently, states she has not been able to pass any similar or drinking copious fluid. patient states her pain is not controllable. she is nauseous no active vomiting. denies fever no dysuria. she does admit to follow-up visit with urology tomorrow states MD Complaint: abdominal pain, flank pain (Left) -: days(s) Location: suprapubic Radiation: L flank Severity: severe Severity scale (1-10): 8 Quality: stabbing, aching Consistency: constant Improves With: nothing Worsens With: nothing Context: other (Known kidney stone) Associated Symptoms: nausea Treatments Prior to Arrival: NSAIDs, prescription analgesics - Related Data Home Medications Medication Instructions Recorded Confirmed Cetirizine HCl [Zyrtec] 10 mg PO HS 04/10/17 09/02/18 Furosemide [Lasix] 40 mg PO DAILY 04/10/17 09/02/18 Metoprolol Tartrate [Lopressor] 50 mg PO HS 04/10/17 09/02/18 Multivitamins, Thera [Multivitamin 1 tab PO DAILY 04/10/17 09/02/18 (formulary)] Omeprazole [PriLOSEC] 80 mg PO HS 04/10/17 09/02/18 Ranitidine HCl 150 mg PO BID 04/10/17 09/02/18 metFORMIN HCL 1,000 mg PO BID 04/10/17 09/02/18 oxyCODONE HCL/ACETAMINOPHEN 1 tab PO BID PRN 04/10/17 09/02/18 [Percocet 10-325 mg] Dilaudid Pain Pump 1 dose INTRATHECA DIRECTED 08/27/18 09/02/18 Liraglutide [Victoza 3-[place]] 1.8 mg SQ HS 08/27/18 09/02/18 Lisinopril [Prinivil] 5 mg PO HS 08/27/18 09/02/18 Meloxicam 15 mg PO HS 08/27/18 09/02/18 Ondansetron HCl [Zofran] 8 mg PO TID PRN 08/27/18 09/02/18 sitaGLIPtin PHOSPHATE [Januvia] 100 mg PO HS 08/27/18 09/02/18 Ibuprofen [Motrin] 800 mg PO Q6HR PRN 09/02/18 09/02/18 Previous Rx's Medication Instructions Recorded Ondansetron Odt [Zofran ODT] 4 mg PO Q8HR PRN #20 tab 08/27/18 Tamsulosin [Flomax] 0.4 mg PO DAILY #10 cap 08/27/18 Allergies Allergy/AdvReac Type Severity Reaction Status Date / Time hydrocodone [From [place]] Allergy Severe Itching Verified 09/02/18 17:16 tramadol [From Ultram] Allergy Severe Itching Verified 09/02/18 17:16 pregabalin [From Lyrica] AdvReac Tingling Verified 09/02/18 17:16 in feet, bed wetting topiramate [From Topamax] AdvReac increases Verified 09/02/18 17:16 blood pressure Review of Systems ROS Statement: Those systems with pertinent positive or pertinent negative responses have been documented in the HPI. ROS Other: All systems not noted in ROS Statement are negative. Past Medical History Past Medical History: Diabetes Mellitus, Hyperlipidemia, Hypertension Additional Past Medical History / Comment(s): marfans syndrome, po and insulin for DM, borderline high cholestrol no meds just diet, IBS no tx at this time, right foot neuropathy History of Any Multi-Drug Resistant Organisms: None Reported Past Surgical History: Hysterectomy Additional Past Surgical History / Comment(s): spinal cord stimulator in upper back - can not have MRI's , partial hyst Past Anesthesia/Blood Transfusion Reactions: No Reported Reaction Past Psychological History: No Psychological Hx Reported Smoking Status: Never smoker Past Alcohol Use History: None Reported Past Drug Use History: None Reported - Past Family History Father Additional Family Medical History / Comment(s): Marfans passed at age 34 Mother Additional Family Medical History / Comment(s): suicide 2 yrs ago - bipolar General Exam Limitations: no limitations General appearance: alert, in no apparent distress Head exam: Present: atraumatic, normocephalic, normal inspection Eye exam: Present: normal appearance, PERRL, EOMI. Absent: scleral icterus, conjunctival injection, periorbital swelling ENT exam: Present: normal exam, mucous membranes moist Neck exam: Present: normal inspection. Absent: tenderness, meningismus, lymphadenopathy Respiratory exam: Present: normal lung sounds bilaterally. Absent: respiratory distress, wheezes, rales, rhonchi, stridor Cardiovascular Exam: Present: regular rate, normal rhythm, normal heart sounds. Absent: systolic murmur, diastolic murmur, rubs, gallop, clicks GI/Abdominal exam: Present: soft, normal bowel sounds. Absent: distended, tenderness, guarding, rebound, rigid Extremities exam: Present: normal inspection, full ROM, normal capillary refill. Absent: tenderness, pedal edema, joint swelling, calf tenderness Back exam: Present: normal inspection Neurological exam: Present: alert, oriented X3, CN II-XII intact Psychiatric exam: Present: normal affect, normal mood Skin exam: Present: warm, dry, intact, normal color. Absent: rash Course Vital Signs 09/02/18 09/02/18 15:22 17:52 Temperature 98.7 F Pulse Rate 101 H 70 Respiratory 18 18 Rate Blood Pressure 153/89 138/72 O2 Sat by Pulse 99 100 Oximetry - Reevaluation(s) Reevaluation #1: Medical record is reviewed Patient has good pain control currently we'll continue to keep follow-up appoi ntment Medical Decision Making - Medical Decision Making 37 female the ER for evaluation of known kidney stone no flank pain. Urine is clear in the ER. Patient will be given pain control here and can be discharged home - Lab Data Lab Results 09/02/18 Range/Units 17:00 Urine Color Yellow Urine Appearance Cloudy H (Clear) Urine pH 5.5 (5.0-8.0) Ur Specific [place] 1.022 (1.001-1.035) Urine Protein Trace H (Negative) Urine Glucose (UA) 2+ H (Negative) Urine Ketones Negative (Negative) Urine Blood Moderate H (Negative) Urine Nitrite Negative (Negative) Urine Bilirubin Negative (Negative) Urine Urobilinogen <2.0 (<2.0) mg/dL Ur Leukocyte Esterase Negative (Negative) Urine RBC 23 H (0-5) /hpf Urine WBC 5 (0-5) /hpf Ur Squamous Epith Cells 1 (0-4) /hpf Hyaline Casts 4 H (0-2) /lpf Urine Mucus Moderate H (None) /hpf Disposition Clinical Impression: Kidney stone, Left ureteral stone Disposition: HOME SELF-CARE Condition: Good Instructions (If sedation given, give patient instructions): Kidney Stones (ED), Renal Colic (ED) Is patient prescribed a controlled substance at d/c from ED?: No Referrals: None,Stated [Primary Care Provider] - 1-2 days
[2018-09-02 17:22] LABS: Appearance,Urine Cloudy (Clear); Bilirubin,Urine Negative (Negative); Blood,Urine Moderate (Negative); Color,Urine Yellow; Glucose,Urine (UA) 2+ (Negative); Hyaline Casts,Urine 4 /lpf (0-2); Ketones,Urine Negative (Negative); Leukocyte Esterase,Urine Negative (Negative); Mucus,Urine Moderate /hpf; Nitrite,Urine Negative (Negative); PH, Urine 5.5 (5.0-8.0); Protein,Urine Trace (Negative); RBC,Urine 23 /hpf (0-5); Specific Gravity,Urine 1.022 (1.001-1.035); Squamous Epithelial Cell,Urine 1 /hpf (0-4); Urobilinogen,Urine <2.0 mg/dL (<2.0)
[2018-09-02 17:53] VITALS: BP 138/72; PULSE 70
== END 2018-09-02 17:53 | disposition home or self-care (01) ==
LOC: EC 14:43
DX: N20.2 Calculus of kidney with calculus of ureter (principal); I10 Essential (primary) hypertension; E11.40 Type 2 diabetes mellitus with diabetic neuropathy, unspecified; Z79.84 Long term (current) use of oral hypoglycemic drugs; Z79.1 Long term (current) use of non-steroidal anti-inflammatories (NSAID); Z79.899 Other long term (current) drug therapy; Z88.5 Allergy status to narcotic agent; Z88.8 Allergy status to other drugs, medicaments and biological substances
CPT/HCPCS: 81001; 99284; 96372; J1170; S0119

== ENCOUNTER → 2020-02-19 | Outpatient (CLI) | payer OTHER ==
--- NOTE | 2020-02-20 10:35 | ECHOF ---
Referral Reason:i35.8 AORTIC VALVE DISORDER MEASUREMENTS -------- HEIGHT: 172.7 cm WEIGHT: 96.2 kg BP: 116/57 RVIDd: 3.4 cm (< 3.3) IVSd: 1.2 cm (0.6 - 1.1) LVIDd: 5.0 cm (3.9 - 5.3) LVPWd: 1.1 cm (0.6 - 1.1) IVSs: 1.8 cm LVIDs: 3.3 cm LVPWs: 1.6 cm LA Diam: 4.0 cm (2.7 - 3.8) LAESV Index (A-L): 31.12 ml/m Ao Diam: 4.0 cm (2.0 - 3.7) AV Cusp: 2.5 cm (1.5 - 2.6) MV EXCURSION: 21.518 mm (> 18.000) MV EF SLOPE: 177 mm/s (70 - 150) EPSS: 1.0 cm MV E Kendrick: 0.74 m/s MV DecT: 305 ms MV A Kendrick: 0.51 m/s MV E/A Ratio: 1.44 RAP: 5.00 mmHg RVSP: 26.56 mmHg TAPSE: 15.62 mm FINDINGS -------- Sinus rhythm. This was a technically adequate study. The left ventricular size is normal. There is borderline concentric left ventricular hypertrophy. Overall left ventricular systolic function is normal with, an EF between 60 - 65 %. The right ventricle is mildly enlarged. LA is midly dilated 29-33ml/m2. The right atrium is normal in size. Interatrial and interventricular septum intact. The aortic valve is trileaflet and appears structurally normal. Mild mitral regurgitation is present. Mild tricuspid regurgitation present. Right ventricular systolic pressure is normal at < 35 mmHg. Trace/mild (physiologic) pulmonic regurgitation. The aortic root is dilated measuring 4.0cm. IVC Not well visulized. There is no pericardial effusion. CONCLUSIONS -------- 1. The left ventricular size is normal. 2. There is borderline concentric left ventricular hypertrophy. 3. Overall left ventricular systolic function is normal with, an EF between 60 - 65 %. 4. The right ventricle is mildly enlarged. 5. LA is midly dilated 29-33ml/m2. 6. Mild mitral regurgitation is present. 7. Mild tricuspid regurgitation present. 8. Trace/mild (physiologic) pulmonic regurgitation. 9. The aortic root is dilated measuring 4.0cm. 10. There is no pericardial effusion. ENTRY LEVEL STAFF ACCOUNTANT: Kimberly Snider RDCS
== END | disposition home or self-care (01) ==
LOC: RADECHMAIN 11:58
PROVIDERS: ATTEND Thoracic Surgery (Cardiothoracic Vascular Surgery)
DX: I08.1 Rheumatic disorders of both mitral and tricuspid valves (principal); I37.1 Nonrheumatic pulmonary valve insufficiency; Z88.5 Allergy status to narcotic agent; Z88.6 Allergy status to analgesic agent; Z88.8 Allergy status to other drugs, medicaments and biological substances
CPT/HCPCS: 93306

== ENCOUNTER → 2020-04-28 | Outpatient (CLI) | payer OTHER ==
[2020-04-28 14:24] LABS: African American GFR (CKD) >90 (>60 ml/min/1.73 sqM); Blood Urea Nitrogen 12 mg/dL (7-17); Non-African American GFR(CKD) >90 (>60 ml/min/1.73 sqM)
--- NOTE | 2020-04-28 22:31 | CT ---
EXAMINATION TYPE: CT angio thor/abd pel aorta DATE OF EXAM: 04/28/2020 INDICATION: Follow up for marfan's syndome. COMPARISON: 08/27/2018 CT DLP: 2489.5 mGycm CONTRAST: Performed without Oral Contrast and without and with IV Contrast, patient injected with 100ml mL of I sovue 370. TECHNIQUE: Axial images at 5 mm thick sections. Reconstructed images in the coronal plane. Delayed images through the kidneys. Three-D reconstructed images performed separately by the technologist madiha polk reviewed on the computer. FINDINGS: CT CHEST: Portion of the thyroid visualized is normal. No suspicious lung nodules or focal infiltrates are present. No enlarged mediastinal or hilar adenopathy is evident. The ascending aorta diameter at the level of the main pulmonary artery is 3.0 cm. The main pulmonary artery diameter at the bifurcation is 2.[address] ABDOMEN: Liver: There is moderate fatty infiltration of the liver. Spleen: Normal Pancreas: Normal Adrenal glands: The adrenal glands are normal. Gallbladder: Normal Kidneys: No masses are evident. No hydronephrosis is present. No cysts are present. Delayed images were obtained remain unremarkable. Aorta: Mild vascular calcifications within the abdominal aorta. No fusiform prominence or aneurysm is evident. The common iliac internal and external iliac and common femoral arteries appear normal. Pro deyanira femoris and superficial femoral arteries within the [id number] are normal. Inferior vena cava: Normal. CT PELVIS: Loops of bowel within the abdomen and pelvis are normal. There are loops of bowel which are incom pletely distended or lack oral contrast limiting their evaluation. Appendix: Not identified. No suspicious dilated tubular structure or inflammatory changes are evident . Urinary bladder: Decompressed with limited evaluation Genitourinary structures: Uterus is normal. Adnexal regions are clear Osseous structures: No suspicious lytic or sclerotic lesions. IMPRESSIONS: 1. Normal thoracic and abdominal aorta with no aneurysmal dilatation is evident.
== END | disposition home or self-care (01) ==
LOC: RADCTMAIN 13:47
PROVIDERS: ATTEND Thoracic Surgery (Cardiothoracic Vascular Surgery)
DX: I71.2 Thoracic aortic aneurysm, without rupture (principal); Q87.40 Marfan syndrome, unspecified; Z88.5 Allergy status to narcotic agent; Z88.6 Allergy status to analgesic agent; Z88.8 Allergy status to other drugs, medicaments and biological substances
CPT/HCPCS: 82565; 84520; 71275; 36415; 74174; Q9967